=== PATIENT | female | born 1955 | race Caucasian/White ===

== ENCOUNTER 2023-04-29 01:07 | Outpatient (CLI) | payer MEDICARE, SELFPAY ==
--- NOTE | 2023-04-29 13:56 | DI.DEXA_ITS ---
Exam(s) XR DEXA BONE DENSITY W/WO NAYA EXAM: XR DEXA BONE DENSITY W/WO NAYA CLINICAL HISTORY: osteoporosis, POSTMENOPAUSAL STATUS, Z78.0 TECHNIQUE: COMPARISON: No exams were available for comparison FINDINGS: Lateral Spine Image: Unremarkable. No compression deformities identified. There are postsurgical andie nges seen in the lower lumbar spine with posterior spinal rods and pedicle screws. Left hip: Total T-Score: -2.5. This compares to -2.6 on the prior examination. Total Z-Score: -1.2 T- and Z-scores: Findings are consistent with osteoporosis. Left forearm: Total T-Score: -1.7 Total Z-Score: -0.1 T- and Z-scores: Findings are consistent with osteopenia. IMPRESSION: Osteoporosis in the left hip.
== END 2023-04-29 01:27 ==
LOC: DI 01:07
PROVIDERS: PCP Nurse Practitioner Family; Visit Provider Nurse Practitioner Family
DX: Z78.0 Asymptomatic menopausal state (principal); Z13.820 Encounter for screening for osteoporosis; M81.8 Other osteoporosis without current pathological fracture
CPT/HCPCS: 77080

== ENCOUNTER 2023-05-27 01:20 | Outpatient (CLI) | payer MEDICARE, SELFPAY ==
[2023-05-27 12:43] LABS: ALT 27 U/L (14-59); AST 21 U/L (15-37); Alkaline Phosphatase 61 U/L (46-116); Anion Gap 7.4 mmol/L (3-11); BUN 9 mg/dL (7-18); Bilirubin, Total 0.3 mg/dL (0.2-1.0); CO2 30.6 mmol/L (21.0-32.0); CREATININE 0.9 mg/dL (0.55-1.02); Calcium 9.4 mg/dL (8.5-10.1); Calculated LDL 48 mg/dL (<100); Chloride 104 mmol/L (98-107); Cholesterol 131 mg/dL (<200); Estimated GFR 70.51 (mL/min/1.73m2); Glucose 97 mg/dL (74-106); HDL Cholesterol 75 mg/dL (40-60); Potassium 4.2 mmol/L (3.5-5.1); Sodium 142 mmol/L (136-145); Total Protein 7.2 g/dL (6.4-8.2); Triglyceride 41 mg/dL (<150)
== END 2023-05-27 01:21 | disposition home or self-care (01) ==
LOC: LOS 01:20
PROVIDERS: PCP Nurse Practitioner Family; Visit Provider Nurse Practitioner Family
DX: E78.2 Mixed hyperlipidemia (principal); I10 Essential (primary) hypertension; F43.10 Post-traumatic stress disorder, unspecified
CPT/HCPCS: 36415; 80053; 80061

== ENCOUNTER → 2023-06-13 13:34 | Outpatient (BNVA) | payer MEDICARE, SELFPAY | PROVIDERS: PCP Nurse Practitioner Family; Referring Provider Nurse Practitioner Family; Visit Provider Surgery | DX: Z12.11 Encounter for screening for malignant neoplasm of colon (principal) | CPT/HCPCS: 36415; 99243 ==

== ENCOUNTER 2023-06-13 14:23 | Outpatient (REF) | payer MEDICARE, SELFPAY ==
[2023-06-13 14:50] LABS: Abs Immature Grans 0.01 10^3/uL (0.0-0.06); Absolute Basophil Count 0.04 10^3/uL (0.0-0.2); Absolute Eosinophil Count 0.04 10^3/uL (0.0-0.7); Absolute Lymphocyte Count 2.25 10^3/uL (1.2-3.4); Absolute Monocyte Count 0.71 10^3/uL (0.1-0.8); Absolute Neutrophil Count 3.47 10^3/uL (1.2-6.7); Basophils % 0.6; Eosinophils % 0.6; HCT 39.6 % (36.0-46.0); HGB 13.7 g/dL (11.2-15.7); Immature Grans % 0.2; Lymphocytes % 34.5; MCH 30.6 pg (27.0-33.0); MCHC 34.6 % (32.0-36.0); MCV 88 fL (80-95); MPV 9.3 fL (8.0-11.0); Monocytes % 10.9; Neutrophils % 53.2; Platelet Count 277 10^3/uL (130-400); RBC 4.48 10^6/uL (3.93-5.22); RDW 12.6 % (11.7-14.6); RDW-SD 41.1 fL; WBC 6.52 10^3/uL (4.4-10.8)
[2023-06-13 15:12] LABS: Ferritin 68 ng/mL (8-252)
== END 2023-06-13 14:24 | disposition home or self-care (01) ==
LOC: LBN 14:23
PROVIDERS: PCP Nurse Practitioner Family; Visit Provider Surgery
DX: I10 Essential (primary) hypertension; K58.9 Irritable bowel syndrome, unspecified; K92.2 Gastrointestinal hemorrhage, unspecified; R19.5 Other fecal abnormalities
CPT/HCPCS: 82728; 85025

== ENCOUNTER 2023-07-05 08:59 | Day surgery (SDC) | payer MEDICARE, SELFPAY ==
--- NOTE | 2023-07-04 14:42 | W.PM.DSUDISC ---
Date of service: 07/05/23 Time of Service: 10:43 Discharge Plan Disposition Patient Disposition: Home Condition: Good Discharge Details Reason For Visit: colon scope Attending Provider: Lottie Cortez Primary Care Provider: Ac Jeffery Home Meds and New Rx's Prescriptions: Continued naloxone [Narcan] 4 mg/actuation spray,non-aerosol 4 mg intranasal Q3M PRN (Reason: opioid overdose) Qty: 2 0RF Patient Comments: 07/05/23 pt denies having this medication Rx Instructions: spray 1 dose into ONE nostril; alternate nostrils w each dose until help arrives multivitamin [Once Daily] 1 EACH tablet 1 tab PO DAILY acetaminophen [Tylenol Extra Strength] 500 MG tablet 2 tab PO PRN polyethylene glycol 3350 510 GM powder 1 dose PO DAILY Qty: 9 Rx Instructions: MIRALAX;DISPENSE 3 MO. SUPPLY cholecalciferol (vitamin D3) 1,000 UNIT capsule 1 cap PO DAILY calcium carbonate-vitamin D3 1 EACH tablet,chewable 2 - 3 tab PO DAILY Rx Instructions: TUMS B Complex Plus Vitamin C 1 EACH capsule 1 cap PO DAILY omega-3 fatty acids-fish oil 1 EACH capsule 1 cap PO DAILY ketorolac 15 MG/1 ML solution 15 mg IM BID PRNQty: 1 estradiol [Estrace] 42.5 GM cream 2 g VG Q 48 Hours Qty: 42.5 clonazepam [Klonopin] 0.5 MG tablet 0.5 mg PO DAILY PRNQty: 90 hydrochlorothiazide 25 mg tablet 12.5 mg PO Q OTHER DAY glycerin (adult) Suppository 1 supp CO DAILY PRN amlodipine [Norvasc] 10 mg tablet 5 mg PO DAILY duloxetine [Cymbalta] 60 mg capsule,delayed release(DR/EC) 60 mg PO DAILY cyclobenzaprine 10 mg tablet 10 mg PO TID PRN (Reason: muscle spasm) Patient Comments: 07/05/23 Pt states I don't use/have this medication methocarbamol 500 mg tablet 500 mg PO QID PRN (Reason: muscle spasm) Qty: 30 0RF hydrocodone-acetaminophen 7.5-325 mg tablet 1 tab PO TID MDD 3 tab PRN (Reason: pain) Qty: 90 0RF montelukast 10 mg tablet 10 mg PO QHS Qty: 90 4RF metoprolol succinate 25 mg tablet extended release 24 hr 12.5 mg PO BID rosuvastatin 20 mg tablet 20 mg PO DAILY Discontinued polyethylene glycol 3350 17 gram/dose powder 238 g PO ONCE Qty: 238 0RF Rx Instructions: take per colonoscopy instructions bisacodyl [Dulcolax (bisacodyl)] 5 mg tablet,delayed release (DR/EC) 5 mg PO ONCE Qty: 4 0RF Rx Instructions: take per colonoscopy instructions bisacodyl [Dulcolax (bisacodyl)] 5 mg tablet,delayed release (DR/EC) 5 mg PO .Take as directed Qty: 4 0RF Discharge Instructions Additional Instructions: [facility] Colonoscopy Post-Op Instructions Instructions for Everyone who is given Anesthesia: For your safety, please do the following for the next twenty-four (24) hours: *Do Not operate a motor vehicle (car, truck, motorcycle, etc.) *Do Not drink alcoholic beverages or use any recreational drugs for the first 24 hours or while taking pain medications. The medications in your body may have a reaction that can be dangerous. *Do Not make any important decisions or sign any important papers. Findings: x4 small polyps -mild diverticula anal skin tag removal Follow up: -My office will send a letter in 2 to 3 weeks time with the results of pathology on the polyps and when we want you to repeat the colonoscopy. 1. No lifting over 20 pounds or strenuous activity for the first 24 hours after your procedure. After 24 hours there are no restrictions on your activity but you may feel fatigued for a few days. 2. After you arrive home you may have a light meal and return to your normal diet as you can tolerate it without feeling sick to your stomach. 3. You may have a bloated, gaseous feeling in your belly (abdomen) after a colonoscopy. Passing gas and belching will help. Walking or lying down on your left side with your knees flexed may relieve the discomfort. Call the office at [phone] (Office) or [phone] (Hospital) right away if you notice any of the following: a.Vomiting of blood or ?coffee ground stools?. b.Rectal bleeding 1Tbsp, blood clots or continuous bleeding. c.Severe belly (abdominal) pain. d.A hard distended belly (abdomen) and an inability to pass gas. 4. Please don?t expect to have a normal BM (bowel movement) for 2-3 days after your procedure. 5. If there are questions regarding the findings of your procedure, please contact your doctor 6. If you are unable to contact your doctor with a problem, contact the hospital at [phone]. 7. Continue all your regular medications unless directed otherwise. I understand the above instructions and have no questions. Signature of Patient or Adult Escort Name of Responsible Adult Escort Signature of Nurse Date/Time Wound Care Instruction Pain Control Use ice!? Ice keeps the swelling down and swelling is what causes pain.? Never apply ice directly to the skin.? Wrap it in a towel or cloth.? Apply ice 20 minutes on and 20 minutes off for pain control.? Use as needed. Take Tylenol 500 mg by mouth with food every 4 hours as needed for pain. Or ibuprofen 600 mg by mouth with food every 6 hours as needed for pain.? Do not take Tylenol if you have a history of heavy drinking, hepatitis C or liver problems.? Do not take ibuprofen if you have a history of stomach ulcers/problems, bleeding problem or kidney issues. ? Always wash your hands before touching your incision. ? Keep the incision clean, dry, and out of water, keep the incision out of water. ? Do not to pick at the scabs. Scabs help protect the wound. ? You can take a shower in 24 hours and wash the incision with soap and water. Pat dry/don?t scrub. It?s OK to wash around the incision. But don?t spray water directly on it. ? Pat stitches dry if they get wet. Don't rub. ? Check the incision site daily for pain, redness, drainage, swelling, or separation of the incision edges. ? Make sure any clothing that touches the incision is loose-fitting. This will prevent rubbing. If the incision is on the head, keep your child from wearing caps or other head coverings. These may rub against the incision. As your incision heals, the skin may appear pink or red. It may also feel slightly bumpy or raised. This is called a healing ridge. Over time, the color should fade and the raised skin will become less noticeable. When to seek medical care Call your healthcare provider right away if you have any of these: ? More pain, redness, swelling, bleeding, or foul-smelling discharge around the incision area ? Fever of 101?F (38.3?C) or higher, or as directed by your child's healthcare provider ? Shaking chills ? Vomiting or nausea that doesn?t go away ? Numbness, coldness, or tingling around the incision area, or changes in skin color ? Opening of the sutures or wound -Stitches or aries that come apart or fall out or surgical tape falls off before 7 days, or as directed by your healthcare provider ?[facility]: [phone] DIVERTICULAR DISEASE OVERVIEW???A diverticulum is a pouch-like structure that can form through points of weakness in the muscular wall of the colon (ie, at points where blood vessels pass through the wall). Diverticulosis affects men and women equally. The risk of diverticular disease increases with age. It occurs throughout the world but is seen more commonly in developed countries. WHAT IS DIVERTICULAR DISEASE? Diverticulosis???Diverticulosis merely describes the presence of diverticula. Diverticulosis is often found during a test done for other reasons, such as flexible sigmoidoscopy, colonoscopy, or barium enema. Most people with diverticulosis have no symptoms and will remain symptom free for the rest of their lives. A person with diverticulosis may have diverticulitis, or diverticular bleeding. Diverticulitis???Inflammation of a diverticulum (diverticulitis) occurs when there is thinning and breakdown of the diverticular wall. This may be caused by increased pressure within the colon or by hardened particles of stool, which can become lodged within the diverticulum. The symptoms of diverticulitis depend upon the degree of inflammation present. The most common symptom is pain in the left lower abdomen. Other symptoms can include nausea and vomiting, constipation, diarrhea, and urinary symptoms such as pain or burning when urinating or the frequent need to urinate. Diverticulitis is divided into simple and complicated forms. ?Simple diverticulitis, which accounts for 75 percent of cases, is not associated with complications and typically responds to medical treatment without surgery. ?Complicated diverticulitis occurs in 25 percent of cases and usually requires surgery. Complications associated with diverticulitis can include the following: ?Abscess ? a localized collection of pus ?Fistula ? an abnormal tract between two areas that are not normally connected (eg, bowel and bladder) ?Obstruction ? a blockage of the colon ?Peritonitis ? infection involving the space around the abdominal organ ?Sepsis ? overwhelming body-wide infection that can lead to failure of multiple organs Diverticular bleeding???Diverticular bleeding occurs when a small artery located within a diverticulum is eroded and bleeds into the colon. Diverticular bleeding usually causes painless bleeding from the rectum. In approximately 50 percent of cases, the person will see maroon or bright red blood with bowel movements. Is bleeding with a bowel movement normal?It is not normal to see blood in a bowel movement; this can be a sign of several conditions, most of which are not serious (eg, hemorrhoids) but some of which are serious and require immediate treatment. Anyone who sees blood after a bowel movement should consult with their healthcare provider to determine if further testing or evaluation is needed. DIVERTICULOSIS AND DIVERTICULITIS DIAGNOSIS???Diverticulosis is often found during tests performed for other reasons. ?Barium?enema ? This is an x-ray study that uses barium in an enema to view the outline of the lower intestinal tract. This is an older test and has been largely replaced by computed tomography (CT) scan. ?Flexible sigmoidoscopy ? This is an examination of the inside of the sigmoid colon with a thin, flexible tube that contains a camera. ?Colonoscopy ? This is an examination of the inside of the entire colon. ?CT scan ? A CT scan is often used to diagnose diverticulitis and its complications. If diverticulitis (not just diverticulosis) is suspected, the above three tests should not be used because of the risk of perforation. TREATMENT Diverticulosis???People with diverticulosis who do not have symptoms do not require treatment. However, most clinicians recommend increasing fiber in the diet, which can help to bulk the stools and possibly prevent the development of new diverticula, diverticulitis, or diverticular bleeding. Fiber is not proven to prevent these conditions in all patients but may help to control recurrent episodes in some. Increase fiber???Fruits and vegetables are a good source of fiber.? Fiber content of packaged foods can be calculated by reading the nutrition label. Seeds and nuts???Patients with diverticular disease have historically been advised to avoid whole pieces of fiber (such as seeds, corn, and nuts) because of concern that these foods could cause an episode of diverticulitis. However, this belief is completely unproven. We do not suggest that patients with diverticulosis avoid seeds, corn, or nuts. Diverticulitis???Treatment of diverticulitis depends upon how severe your symptoms are. Home treatment???If you have mild symptoms of diverticulitis (mild abdominal pain, usually left lower abdomen), you can be treated at home with a clear liquid diet and oral antibiotics. However, if you develop one or more of the following signs or symptoms, you should seek immediate medical attention: ?Temperature >100.1?F (38?C) ?Worsening or severe abdominal pain ?An inability to tolerate fluids Hospital treatment???If you have moderate to severe symptoms, you may be hospitalized for treatment. During this time, you are not allowed to eat or drink; antibiotics and fluids are given into a vein. If you develop an abscess of the colon, you may require drainage of the abscess (usually performed by placing a drainage tube across the abdominal wall) or by surgically opening the affected area. Surgery???If you develop a generalized infection in the abdomen (peritonitis), you will usually require an emergency operation. A two-part operation may be necessary in some cases. ?The first operation involves removal of the diseased colon and creation of a colostomy. A colostomy is an opening between the colon and the skin, where a bag is attached to collect waste from the intestine. The lower end of the colon is temporarily sewed closed to allow it to heal. ?Approximately three to six months later, a second operation is performed to reconnect the two parts of the colon and close the opening in the skin. You are then able to empty your bowels through the rectum. Sometimes patients require up to a year to recover from the first operation, depending on how sick they were. In non-emergency situations, the diseased area of the colon can be removed and the two ends of the colon can be reconnected in one operation, without the need for a colostomy. Surgery versus medical therapy???An operation to remove the diseased area of the colon may be necessary if you do not improve with medical therapy. After an episode of uncomplicated diverticulitis, elective surgery is generally not required as the risk of another attack or requiring emergency surgery is low. However, patients with persistent symptoms attributable to diverticulitis, a history of complicated diverticulitis, or a compromised immune system should be evaluated for possible surgery to prevent another attack. In such patients, another attack has been associated with a higher risk of complications or . Of course, the decision will also depend in part upon your other medical conditions and ability to undergo surgery. In many cases, an elective operation can be performed laparoscopically, using small incisions, rather than the typical vertical (up and down) abdominal incision. Laparoscopic surgery usually allows you to recover more quickly and shortens the hospital stay. After diverticulitis resolves???After an episode of diverticulitis resolves, if you have not had a recent colonoscopy, the entire length of the colon should be evaluated to determine the extent of disease and to rule out the presence of abnormal lesions such as polyps or cancer. Recommended tests include colonoscopy, barium enema and sigmoidoscopy, or CT colonography. Diverticular bleeding???Most cases of diverticular bleeding resolve on their own. However, some people will need further testing or treatment to stop bleeding, which may include a colonoscopy, angiography (a treatment that blocks off the bleeding artery), bleeding scan, or surgery. DIVERTICULAR DISEASE PROGNOSIS Diverticulosis???Over time, diverticulosis may cause no problems or it may cause episodes of bleeding and/or diverticulitis. Approximately 15 to 25 percent of people with diverticulosis will develop diverticulitis, while 5 to 15 percent will develop diverticular bleeding. Diverticulitis???Approximately 85 percent of people with uncomplicated diverticulitis will respond to medical treatment, while approximately 15 percent of patients will need an operation. After successful treatment for a first attack of diverticulitis, one-third of patients will remain asymptomatic, one-third will have episodic cramps without diverticulitis, and one-third will go on to have a second attack of diverticulitis. The prognosis tends to remain similar following a second attack of diverticulitis. Only 10 percent of people remain symptom-free after a second attack. Subsequent attacks tend to be of similar severity, not increasing in severity as previously believed. High Fiber Diet What is Dietary Fiber? All fiber comes from plants, bushes, sal or trees.? Of course, the ones that we eat provide us with fruits, vegetables and grains.? There are many different types of fiber but the three that are most important to the health of the body are: Insoluble Fiber This fiber does not dissolve in water, nor is it fermented by the bacteria residing in the colon.? Rather, it retains water and in so doing, helps to promote a larger, bulkier and more regular bowel activity.? This, in turn, may be important in preventing disorder such as diverticulosis and hemorrhoids, and in sweeping out certain toxins and cancer causing carcinogens.? Sources of insoluble fiber are: ? whole grain wheat and other whole grains ? corn bran, including popcorn, unflavored and unsweetened ? nuts and seeds ? potatoes and the skins from most fruits from trees such as apples, bananas and avocados ? many green vegetables such as green beans, zucchini, celery and cauliflower ? some fruit plants such as tomatoes and kiwi Soluble Fiber These fibers are fermented or used by the colon bacteria as a food source or nourishment.? When these good bacteria grow and thrive, many health benefits occur in both the colon and the body.? Soluble fiber is present in some degree in most edible plant foods, but the ones with the most soluble fiber include: ? legumes such as peas and most beans, including soybeans ? oats, rye and barley ? many fruits such as berries, plums, apples bananas and pears ? certain vegetables such as broccoli and carrots ? most root vegetables ? psyllium husk supplement products Benefits of a High Fiber Diet The health benefits of a high fiber diet, consumed on a regular basis and reaching recommended amounts (below), are now fairly well-defined. There are some additional benefits in the early research stage with the prebiotic soluble fibers. What is now known regarding a high fiber diet include: Bowel Regularity A high fiber diet promotes regularity with a softer, bulkier and regular stool pattern. This decreases the chance of hemorrhoids, diverticulosis and perhaps colon cancer. Cholesterol and Reduced Triglycerides The soluble fibers are the ones that will reduce cholesterol levels when used on a regular basis. Psyllium husk and prebiotic soluble fiber will also reduce cholesterol. They may also reduce the incidence of coronary heart disease. Oats, flax seeds and legumes or beans are the recommended fibers. Colon Polyps and Cancer It is still not certain if a high fiber diet helps prevent colon cancer. Considerable research suggests that this may occur. Certainly it makes sense to increase regularity and so speed the movement of cancer causing carcinogens through the bowel. In addition, reducing a heavy meat diet reduces the bile flow from the liver in a favorable way. This, too, reduces the amount of carcinogens that reach and are manufactured in the colon. Finally, a high fiber diet, including prebiotic soluble fiber, increases the integrity and health of the wall of the colon. The risk of cancer may be reduced. Colon Wall Integrity A high fiber diet changes the bacterial makeup of the colon toward a more favorable balance. For instance, it is known that those people with obesity, diabetes type 2 and inflammatory bowel disease have a predominance of bad bacteria in the colon. This, in turn, may render the bowel wall weak and allow bacteria and, indeed, even toxins to seep through. A high fiber diet with a modest reduction in animal and meat products may return the bacterial makeup to a more positive balance. This, in particular, has been seen when the soluble fiber prebiotics are added to the diet. Blood Sugar Soluble fiber such as in legumes (beans), oats and in prebiotic fibers slows the absorption of blood sugar and so helps regulate the sugar in the blood. Insoluble fiber on a regular basis is associated with reduced risk of type 2 diabetes. Weight Loss High fiber diets are more filling and give a sense of fullness sooner than an animal and meat based diet does. In addition, the soluble prebiotic fibers have been shown to turn off the hunger hormones produced in the wall of the gut and to increase the hormones that give a sense of fullness. Those hormones are made in the wall of the gut. New medical research has shown that the bacterial makeup in the colon in overweight people is abnormal to the extent that they manufacture and absorb almost twice the number of calories through the colon wall as do normals. Prebiotic fibers (below) will help change this hormonal balancein a favorable way. Bacteria and the Function of the Colon The colon finishes the digestive process. Hopefully, the waste products move through in a nice regular manner. Insoluble fibers help this process by retaining water and so producing a bulkier, softer stool, which is easy to pass. The additional role of the colon is to provide a home for an enormous number of micro-organisms, mostly bacteria. Recent research has shown that there are over 1,000 species of bacteria with a total bacterial count ten times the number of cells in the body. These bacteria play a major role in keeping the colon wall itself healthy. In addition, these good bacteria produce a very strong immune system for the body. They significantly increase calcium absorption and bone density. They provide other documented benefits. It is the soluble fibers in the diet that are so effective in stimulating the growth of good colon bacteria. How Much is Enough? The amount of fiber in food is measured in grams.? National nutritional authorities recommend the following amounts of dietary fiber daily. Under Age 50? Over Age 50 Men? 38 grams? 30 grams Women??? 25 grams? 21 grams For a week or so, it is best to tally the amount of fiber you are consuming.? Boxed and packaged foods will have the amount of fiber per serving on the nutrition label. Which Fibers and Which Foods are Best? As noted, healthy fiber is only found in plants. The three major categories are whole grains, fruits and vegetables. Whole Grains Wheat, oats, barley, wild or brown rice, amaranth, buckwheat, bulgur, corn, millet, quinoa, rye, sorghum, teff and triticals. By far, wheat, oats and wild or brown rice are most common. Always buy whole grain products. White bread, baked goods and rolls almost always are made from wheat flour. Wheat flour is white because most of the fiber, vitamins and other nutrients have been removed. Try not buy enriched grains. What this means is that simple white flour has had vitamins added to it by the currency counter. The word, enriched, implies a good and healthy product. On the contrary, enriched means that most of the fiber has been removed and a few vitamins added. Fruits Fruits come from trees such as apple and pear or from bushes or sal. You should eat a wide variety of fruits, preferably with every meal. In many cases, the skin of a fruit such as apple will contain much of the insoluble fiber while the pulp contains most of the soluble fiber. To the extent possible, buy organic fruits as these will have little or no pesticides. Always wash fruit. Vegetables Eat a wide variety of vegetables. They should be a mainstay of lunch and dinners. Frozen vegetables retain as much nutrition and fiber as fresh vegetables. As with fruit, try to buy organic to reduce any residual pesticide ingestion. Wash fresh vegetables thoroughly. Cruciferous vegetables such as broccoli, [place] sprouts and cauliflower contain certain chemicals such as sulforaphane. This substance has very strong anti-cancer properties and should be eaten frequently. Legumes, Beans, Peas and Soybeans These vegetables have plenty of soluble fiber and should be part of a varied vegetable intake. Beans, in particular, contain a certain type of fiber that may lead to harmless gas or bloating. Nuts and Seeds These are rich sources of fiber and are a good substitute for sweets such as candies and baked sweet goods. While nuts and seeds are rich in fiber, they also contain vegetable fat and so can and do add calories. Read the Labels As noted, fresh and frozen foods are usually better.? They have good nutrition and few, if any, chemicals added to them.? When buying packaged foods and, in particular grains, look for three things: ? The first word on the label should be whole, such as whole wheat or whole grain. ? Check out the calories and the amount of fiber in a serving. ? How many and what other additives or chemicals are added.? Fewer is always better.? Do you know what each additive does?? Some are added not for the benefit of the mainframe applications developer but rather for manufacturers.? These could and do include sugar, artificial flavor, chemicals to prevent oxidation and spoilage, emulsifiers to blend the product.? You have to be a principal java software engineer. Fiber Facts, Nuggets and Pearls ? For breakfast you can easily get the day started well by using a high fiber, whole grain cereal.? Check the labels.? Add fruit such as blueberries and bananas.? If you are an egg eater, use whole wheat or grain toast.? Adding wheat germ gives you a good fiber kick. ? Always use whole grain or wheat with rolls and sandwiches.? Does your fast food store not have them?? Perhaps you look elsewhere.? Eating an occasional black ndiaye or veggie burger provides variety. ? Snacks should consist of fruit and/or nuts.? While nuts are loaded with fiber, they are an energy rich food, meaning they have a lot of calories in a small packet. ? Fruit juices should contain pulp.? Clear juices such as clear orange, pear or apple juice contain little fiber and have a lot of fructose.? Prune juice is usually high in fiber. ? Homemade soups ? adding fresh or frozen vegetables to a chicken or vegetable stock is a good way to start homemade soup. ? Salads ? adding cooked and then chilled vegetables provide great flavoring to almost any salad.? Remember, a zuniga salad has lots of cooked corn in it.? Small slices of apples or oranges and nuts such as chopped walnuts or sliced almonds always adds taste, variety and fiber to almost any salad. ? Fruit ? Try to eat fruit of some type with almost every meal. ? Rethink how you place the various foods on your dinner plate.? Reducing the portions of the meat or animal food portion to the side with equal or more portions of vegetables, legumes and fruits portion always allows for more fiber.? There was never anything magic about making the meat or animal food portion the main part of the dinner plate.? Eating from smaller plates can, over time, trick your mind and joint terminal attack controller habit of using a dinner plate.? Again, there is nothing magic in an 11, 12, or 13 inch dinner plate. Fiber Supplements There are a variety of fiber supplements available on the food or pharmacy shelves. Psyllium This soluble plant fiber has been used in [place] for over 2,000 years. It is a soluble fiber with mucilage in it. This acts to retain a lot of water and also is fermented by colon bacteria. When 7 grams a day are used, it does lower cholesterol. Metamucil in various forms is psyllium. Methyl Cellulose All the cellulose products come from finely ground wood chips which are then treated in a variety of ways such as boiling in acids. Methyl cellulose is an insoluble fiber which does dissolve in water. It is also an emulsifier, meaning it blends oils and water. Citrucel is methyl cellulose (MC). MC may not be appropriate for Crohn?s disease or ulcerative colitis as several medical studies have shown that certain emulsifiers dissolve the mucous lining of the colon in animals prone to Crohn?s disease. This then allows bacteria to invade the underlying tissue. Fiber and Gas Everyone has intestinal gas and that is a good thing.? It means that bacteria, hopefully the good ones, are thriving.? The normal amount of flatus passed each day depends on sex and what is eaten.? The normal number of flatus is 10-20 times a day.? When the bacteria that make intestinal gases are growing, it also means that other good bacteria are using the same fibers to grow and produce multiple health benefits, including the production of healthy short-chain fatty acids.? These substances are produced quietly in the colon and produce many health-related outcomes. Soluble fiber should always be used in a gradual manner.? If too much is consumed at any one time, then excess, but harmless, intestinal gas can occur.? People with irritable bowel syndrome are particularly prone to bloating and mild cramping.? In this instance, soluble fiber in the diet or supplement should be used in small doses and increased gradually. Finally, prebiotic fibers tend to cause the production of short-chain fatty acids which acidify the colon.? This, in turn, reduces or stops the growth of bacteria that make the smelly hydrogen sulfide gases that produce noxious flatus.? People who consume many vegetables with prebiotics or take a prebiotic fiber supplement often have non-odoriferous flatus. Fiber and Irritable Bowel Syndrome Irritable bowel syndrome (IBS) is one of the most common disorders of the lower digestive tract.? The symptoms of IBS can be quite varied.? They can be a mix of several symptoms such as constipation, diarrhea, crampy abdominal discomfort, bloating and gas.? An attack of IBS can be triggered by emotional tension and anxiety, poor dietary habits and certain medications.? It is now known that infections in the intestine can lead to long-term IBS symptoms.? Increased amounts of fiber in the diet can help relieve the symptoms of irritable bowel syndrome by producing soft, bulky stools.? This helps to normalize the time it takes for the stool to pass through the colon.? Recent medical research with newer techniques has shown some surprising and dramatic findings for IBS patients.? Specifically, there is a very significant and abnormal shift of bacteria from those that provide health benefits to those bad bacteria that we really do not want in the gut.? The technical name for this bad group of bacteria is called Firmicutes.? Along with this abnormal bacterial collection, there is a smoldering low-grade inflammation in the gut wall that may contribute to symptoms.? The goal for IBS patients should be to gradually increase the soluble dietary fibers in the diet so as to promote the growth of good bacteria and so suppress the bad ones along with the associated inflammation. IBS patients need to be careful of the amount of soluble fiber they consume.? The reason for this is that, while the good colon bacteria thrive on these fibers and produce health benefits, other gas-forming bacteria may generate excessive but harmless gas and subsequent bloating.? Thus, soluble plant fibers or a dietary prebiotic supplement should be taken in small initial doses and then gradually increased to tolerance. Fiber and Colon Polyps/Cancer Colon cancer is a major health problem. This disease is most common in Western cultures. It is not seen very often in rural cultures where the diet is mostly plant based. Usually, colon cancer starts out as a colon polyp, a benign mushroom-shaped growth. In time it grows, and in some people it becomes cancerous. Colon cancer is usually always curable if polyps are removed when found or if surgery is performed at an early stage. It is now known that people can inherit the risk of developing colon cancer, but diet is important, too. As noted, there is a very low rate of colon cancer in residents of countries where grains are unprocessed and retain their fiber. It seems that in the Western world, cancer-containing agents (carcinogens) remain in contact with the colon wall for a longer time and in higher concentrations. So, a large bulky stool may act to dilute these carcinogens by moving them through the bowel more quickly. Less carcinogenic exposure to the colon may mean fewer colon polyps and less cancer. A very current review of the entire world?s literature on the effect of fiber on colon polyps and cancer prevention has shown rather clearly that for every 10 grams of fiber added to the diet, there is a 10% reduction in incidence of colon cancer. So the recommended 30 gram fiber diet would result in a 30% less chance of getting these tumors. There are also substances produced in the colon by the good bacteria that seem to retard certain pre-cancer factors from developing. They are called short-chain fatty acids (SCFA). See above for description of SCFAs. A high fiber diet increases these substances. So, the combination of dietary fiber and the production of short-chain fatty acids have a clear health benefit. Fiber and Diverticulosis Prolonged, vigorous contraction of the colon over a long period of time may result in diverticulosis.? This increased pressure causes small and, eventually, larger ballooning pockets to form.? These pockets by themselves cause no problem.? However, sometimes they become infected (diverticulitis) or even break open (perforate) causing infection or inflammation within the abdomen (peritonitis).? A high fiber diet increases the bulk in the stool and thereby reduces the pressure within the colon.? By so doing, the formation of pockets may be reduced or possibly even stopped. In the past, many physicians were fearful that seeds as in tomatoes, nuts or berries were harmful and could get inside these pockets and rattle around, causing damage. We now know that this has never been the case and that these foods contain lots of fiber and are actually beneficial for diverticulosis patients. Certain bulking agents such as psyllium are traditional types of bulk producing supplements.? Psyllium is a soluble fiber.? Combining it with insoluble fiber as in wheat bran or corn bran (no gluten) can enhance this bulking effect even more.? A product containing a prebiotic, psyllium and wheat bran is probably a very good combination for bowel regularity. [email or web address] Regularity/Diverticulosis is one such product. Activity:: see above Diet:: see above Discharge Orders Discharge Orders: Discharge Order (Routine); Ordered 07/05/23 Ordered By: Lottie Cortez DS: Diagnosis Discharge Diagnosis (1) Hemorrhoidal skin tag: Status: Acute (2) Hemorrhoids: Status: Acute (3) Diverticulosis: Status: Acute (4) Positive colorectal cancer screening using Cologuard test: Status: Acute (5) Adenomatous polyps: Status: Acute Asessment and Plan: The patient is seen and examined after their colonoscopy.? The patient has been able to pass gas.? They are not having abdominal pain.? They have been able to tolerate liquids and a snack.? They do not have any nausea or vomiting.? They are not having any chest pain or shortness of breath.??? They are not having any rectal bleeding. Their vital signs have been stable-see nursing notes. We discussed findings during their colonoscopy, and any biopsies that were done/polyps that were removed. The patient will be sent a letter with any biopsy results, and when to repeat the colonoscopy.-see discharge instructions. Patient was given explicit instructions to follow-up regarding colonoscopy-refer to discharge instructions.? We reviewed resumption of medications. Patient verbalized understanding and discharged in stable and satisfactory condition- See nursing notes.
--- NOTE | 2023-07-04 14:43 | W.COLOREPORT ---
Date of service: 07/05/23 Time of Service: 10:40 Colonoscopy Report Date of procedure: 07/05/23 Pre-op diagnosis general: History of adenomatous polyps and diverticula. Positive Cologuard and joan Post-op diagnosis procedure note: same (and perirectal skin tag) Procedure: Colonoscopy and excision of perirectal skin tag Surgeon: Lottie Cortez Anesthesia Type: General:No Airway Estimated blood loss (mL): 1 Pathology: other Complications: None Disposition: same day Prep: Miralax/Dulcolax Retraction Time: 15 Procedure Description: After informed consent was obtained the patient was taken to the procedure room and placed in a left decubitous position. Monitors were applied and a time out was done. The patients name, date of , procedure, allergies to medications and metal in their body was reviewed. The patient was then sedated. Once sedated and comfortable a rectal exam was done. External exam was normal. Internal exam revealed a normal sphincter tone and no palpable masses. The scope was then introduced and retrofelexed. No internal hemorrhoids were identified. The scope was then advanced to the cecum w/out difficulty. The TI and appendiceal orifice were identified. The prep was BBPS 3 in all segments for a total of 9.. The scope was then slowly retracted over 15 minutes back into the rectum. She has minor diverticular disease that extends all the way over to the splenic flexure. There is no signs of active bleeding or infection. She has 4 small polyps that we removed today with a cold biting forcep. There are three 5 mm flat polyps at 20 cm, and x1 flat 5 mm polyp at 10 cm. All specimens are retrieved and no bleeding is noted. She has a 0.5 cm anal skin tag at the 6 o'clock position. This is excised using electrocautery. The scope was removed and the patient was woken up and taken back to Same day surgery in stable condition. The patient tolerated the procedure well and there were no immediate complications. Follow up: The patient should follow up in ~7 years unless they develop changes in bowel habits or other new gastrointestinal complaints.
[2023-07-05 09:37] VITALS: BP 126/68; PULSE 73; RESP 16; TEMP 35.8; O2SAT 99
--- NOTE | 2023-07-05 09:50 | ANES.PREOP_ITS ---
General Info Date of Service Date Performed: 07/05/23 Height: 5 ft 0.5 in Weight: 55.8 kg Body Mass Index (BMI): 23.6 Surgical Procedure: Operation Date: 07/05/23 10:25 Proposed Procedure Side Surgeon p Colonoscopy Lottie Cortez, DO s Excision Anal Skin Tag Lottie Cortez, Actual Procedure Side Surgeon p Colonoscopy Lottie Cortez, DO s Excision Anal Skin Tag Lottie Cortez, DO Meds Allergies and Home Medications Allergies Allergy/AdvReac Type Severity Reaction Status Date / Time silicone [Silicone] Allergy Mild LOCAL Unverified 07/05/23 09:21 REACTION amoxicillin Allergy Unknown Hives Unverified 07/05/23 09:21 cefaclor [Cefaclor] Allergy Unknown RASH Unverified 07/05/23 09:21 NSAIDS (Non-Steroidal AdvReac Unknown GI Unverified 07/05/23 09:21 Anti-Inflamma DISTRESS oxycodone [Oxycodone] AdvReac Unknown HALLUCINATI Unverified 07/05/23 09:21 ONS Home Medication Medication Instructions Recorded acetaminophen 500 mg tablet 2 tab PO PRN 01/29/13 (Tylenol Extra Strength) calcium carbonate 500 mg-vitamin 2 - 3 tab PO DAILY 01/29/13 D3 2.5 mcg (100 unit) chewable tablet cholecalciferol (vitamin D3) 25 1 cap PO DAILY 01/29/13 mcg (1,000 unit) capsule multivitamin (Once Daily tablet) 1 tab PO DAILY 01/29/13 omega-3 fatty acids-fish oil 300 1 cap PO DAILY 01/29/13 mg-1,000 mg capsule polyethylene glycol 3350 17 1 dose PO DAILY ##9 01/29/13 gram/dose oral powder vitamin B comp and C no.3 15 mg-10 1 cap PO DAILY 01/29/13 mg-50 mg-5 mg-300 mg capsule (B Complex Plus Vitamin C) ketorolac 15 mg/mL injection 15 mg IM BID PRN #1 vial 04/02/14 solution clonazepam 0.5 mg tablet (Klonopin) 0.5 mg PO DAILY PRN #90 tabs 07/30/14 estradiol 0.01% (0.1 mg/gram) 2 g vaginal Q 48 Hours #42.5 grams 07/30/14 vaginal cream (Estrace) amlodipine 10 mg tablet (Norvasc) 5 mg PO DAILY 04/02/23 duloxetine 60 mg capsule,delayed 60 mg PO DAILY 04/02/23 release (Cymbalta) glycerin (adult) 1 supp [place] DAILY PRN 04/02/23 hydrochlorothiazide 25 mg tablet 12.5 mg PO Q OTHER DAY 04/02/23 cyclobenzaprine 10 mg tablet 10 mg PO TID PRN muscle spasm 04/18/23 naloxone 4 mg/actuation nasal 4 mg intranasal Q3M PRN opioid 04/18/23 spray (Narcan) overdose #2 ea bisacodyl 5 mg tablet,delayed 5 mg PO .Take as directed #4 tabs 06/13/23 release (Dulcolax (bisacodyl)) bisacodyl 5 mg tablet,delayed 5 mg PO ONCE colonscopy bowel prep 06/13/23 release (Dulcolax (bisacodyl)) #4 tabs polyethylene glycol 3350 17 238 g PO ONCE colonoscopy prep 06/13/23 gram/dose oral powder #238 grams methocarbamol 500 mg tablet 500 mg PO QID PRN muscle spasm #30 06/16/23 tabs hydrocodone 7.5 mg-acetaminophen 1 tab PO TID PRN pain #90 tabs 06/20/23 325 mg tablet montelukast 10 mg tablet 10 mg PO QHS #90 tabs 06/20/23 metoprolol succinate 25 mg 12.5 mg PO BID 07/05/23 tablet,extended release 24 hr rosuvastatin 20 mg tablet 20 mg PO DAILY 07/05/23 Current Visit Medications: Current Medications Generic Name Dose Route Start Last Admin Trade Name Freq PRN Reason Stop Dose Admin Ringer's Solution 1,000 mls @ 80 mls/hr 07/05/23 06:00 IV 08/03/23 23:59 INFUSION [facility] IV Miscellaneous Supplies 1 each 07/05/23 06:00 Iv Access IV 08/03/23 23:59 DIRECTED [facility] Ondansetron HCl 4 mg 07/05/23 05:44 Ondansetron 4 Mg/2 Ml Vial IVP 08/04/23 05:43 Q4H PRN PRN Nausea / Vomiting Sodium Chloride 0 ml 07/05/23 06:00 Normal Saline Flush 10 Ml Syr IV 08/03/23 23:59 PRN PRN Sodium Chloride 0 ml 07/05/23 06:00 Normal Saline 10 Ml Vial IJ 08/03/23 23:59 DIRECTED PRN Sterile Water 0 ml 07/05/23 06:00 Water,Injection,Sterile 10 Ml Vial IJ 08/03/23 23:59 DIRECTED PRN PFSH Active Problems Active Problems: Problem Status Onset Code Hemorrhoidal skin tag K64.4 Hemorrhoids K64.9 Rectal bleeding K62.5 Diverticulosis K57.90 Positive colorectal cancer screening using Cologuard test R19.5 Posttraumatic stress disorder F43.10 Smoker F17.200 Amenorrhea N91.2 Osteoporosis M81.0 Essential hypertension I10 Mixed hyperlipidemia E78.2 Degenerative joint disease involving multiple joints on both sides of body M15.9 DDD (degenerative disc disease), lumbar M51.36 Sacroiliitis M46.1 IBS (irritable bowel syndrome) K58.9 Allergic rhinitis J30.9 Nerve pain M79.2 Screening for colorectal cancer Z12.11, Z12.12 Medical History Medical History Atrophic vaginitis (11/20/13) Chest pain (12/26/12) Depressive disorder Gallbladder polyp Pain in thoracic spine Surgical History Surgical History Abdominal hysterectomy (~1983) Appendectomy (~06/1996) Bilateral salpingectomy with oophorectomy (~1983) Colonoscopy - MAC (08/13/11) Colitis Diagnostic Laproscopy (~06/1996) Endometriosis History of back surgery History of bilateral oophorectomy Hx laparoscopic cholecystectomy Hx of tonsillectomy nerve repair left median Spinal Fusion 4-5 Status post abdominal hysterectomy Status post appendectomy Status post laparoscopy Status post spinal arthrodesis Tobacco Smoking/Tobacco Use Status: Current every day Tobacco Type: cigarettes Passive smoking exposure: Yes Second hand exposure: Yes Alcohol Alcohol Intake: former Substance Use Substance use: Never Substance use type: does not use Vital Signs and Lab Results Vital Signs Most Recent Vital Signs in EMR: Most Recent Vital Signs Temp Pulse Resp BP Pulse Ox 35.8 C L 73 16 126/68 99 07/05/23 09:37 07/05/23 09:37 07/05/23 09:37 07/05/23 09:37 07/05/23 09:37 Lab Results Blood Type / Crossmatch: No Data to Display Complete Blood Count: White Blood Count 6.52 10^3/uL (4.4-10.8) 06/13/23 14:15 Red Blood Count 4.48 10^6/uL (3.93-5.22) 06/13/23 14:15 Hemoglobin 13.7 g/dL (11.2-15.7) 06/13/23 14:15 Hematocrit 39.6 % (36.0-46.0) 06/13/23 14:15 Platelet Count 277 10^3/uL (130-400) 06/13/23 14:15 Complete Metabolic Panel: No Data to Display Liver Function Panel: No Data to Display Coagulation Panel: No Data to Display Cardiac Panel: No Data to Display Arterial Blood Gas: No Data to Display Venous Blood Gas: No Data to Display Pancreas Panel: No Data to Display Thyroid Panel: No Data to Display Infectious Disease: No Data to Display Blood Cultures: No Data to Display Toxicology Panel: No Data to Display Imaging and Studies Imaging and Studies Study information below may be from another EMR and interpreted by another provider. Please see original notes in EMR for more complete details. Pulmonary Function Summary: 02/05/13: normal study Anesthesia Assessment and Plan Anesthesia History Personal History: No History of Anesthesia Complications Family History: No Family History of Anesthesia Complications Exercise Tolerance Exercise Tolerance: Metabolic Equivalents>4 Pertinent Negatives Pertinent Negatives: No Symptoms of GERD, No Major Cardiovascular Symptoms or Complaints and No Major Pulmonary Symptoms or Complaints Cardiac & Pulmonary Exam Cardiac Exam: Normal S1/S2 Heart Sounds Pulmonary Exam: Clear Bilateral Breath Sounds Implantable Cardiac Device Does patient have a Pacemaker or an ICD?: No Airway Exam Known Difficult Airway: No Mallampati Class: 2 Mouth Opening: Normal (> 3cm) Thyromental Distance: Less than 3 cm Neck Range of Motion: Full ROM Neck Circumference: Normal Teeth Condition: Normal Dentition ASA Classification ASA Score: ASA 2 Emergency Case?: No NPO Status NPO Status: NPO Clears >2 hours, Solids >8 hours Anesthesia Plan Resuscitation Status: Full Code Anesthesia Technique: General Anesthesia Airway Planned: Natural Airway Monitors Used: Standard Monitors
[2023-07-05 09:52] VITALS: BMI 23.6
[2023-07-05] MEDS: Lactated Ringers 1,000 ML 80 ML IV (09:55)
--- NOTE | 2023-07-05 10:14 | BOWEL_PTH ---
PATIENT: Kika Parnell LOC: [facility] U#:[id number] AGE/SX: 68/F ROOM: RE07/05/[address]: Lottie Cortez : 1955 BED: DIS: 07/05/2023 SPEC #: [id number] RECD: 07/05/23 13:16 STATUS: SHANI RE #: [id number] DEBI: 07/05/23 10:[address]: Lottie Cortez DEPT: Surgical Specimen RECD BY: Mandy Leigh ENTERED: 07/05/23 13:18 SP TYPE: Bowel OTHR DR: Ac Moncada, MARIA C Tissues: 1 - BIOPSY BOWEL 2 - BIOPSY BOWEL 3 - SKIN CYST/TAG/DEBRIDEMENT Procedures: GROSS AND MICRO LEVEL 4 IMMUNOPEROXIDASE STAIN GROSS AND MICRO LEVEL 3 Comments: [id number]
[2023-07-05 10:39] VITALS: BP 103/51; PULSE 67; RESP 16; TEMP 36; O2SAT 99
--- NOTE | 2023-07-05 11:00 | W.ANESPOSTOP ---
Postoperative Evaluation Date, Time and Location Date Performed: 07/05/23 Time Performed: 11:01 Patient Location: Day Surgery Unit Vital Signs Most Recent Imported Vital Signs: Most Recent Vital Signs Temp Pulse Resp BP Pulse Ox 36 C L 67 16 103/51 L 99 07/05/23 10:39 07/05/23 10:39 07/05/23 10:39 07/05/23 10:39 07/05/23 10:39 Pain Score Most Recent Pain Score: Most Recent Pain Score Pain Level 0 07/05/23 10:39 Assessment Mental Status: Awake (Alert & Oriented to Patient Baseline) Airway and Respiratory Function: Patent airway with normal (patient baseline) respiratory exam Cardiovascular Function: Hemodynamically Stable Hydration Status: Adequately Hydrated Nausea & Vomiting: No Nausea or Vomiting Pain: Pt. Denies Any Pain Peripheral Nerve Block: Patient did not receive a nerve block
[2023-07-05 11:15] VITALS: BP 128/70; PULSE 63; RESP 16; TEMP 36; O2SAT 99
== END 2023-07-05 11:38 | disposition home or self-care (01) ==
PROVIDERS: PCP Nurse Practitioner Family; Visit Provider Surgery
PROC: 0DJD8ZZ Inspection of Lower Intestinal Tract, Via Natural or Artificial Opening Endoscopic (ICD-10-PCS; CPT 45378; principal; 2023-07-05 10:15)
PROC: (CPT 46040; 2023-07-05 10:15)
DX: Z12.11 Encounter for screening for malignant neoplasm of colon (principal); R19.5 Other fecal abnormalities; Z86.010 Personal history of colon polyps; K57.30 Diverticulosis of large intestine without perforation or abscess without bleeding; K63.5 Polyp of colon; K64.4 Residual hemorrhoidal skin tags; K63.89 Other specified diseases of intestine; K62.89 Other specified diseases of anus and rectum
CPT/HCPCS: 45380; 88305; 88304; 88361

== ENCOUNTER → 2023-07-26 03:00 | Outpatient (CLI) | payer MEDICARE, SELFPAY ==
--- NOTE | 2023-07-26 07:45 | DI.MRI_ITS ---
Exam(s) MR CERVICAL SPINE WO EXAM: MR CERVICAL SPINE WO CLINICAL HISTORY: worsening pain,anterolisthesis,m43.12 TECHNIQUE: Multiplanar multisequence MRI of the cervical spine was performed without intravenous con trast. COMPARISON: No previous for comparison. FINDINGS: BONES: Vertebral body heights are maintained. Intervertebral disc spaces are normal. There is minimal anterolisthesis of C4 on C5. Bone marrow signal intensity is within normal limits. CERVICAL CORD: Craniovertebral junction is unremarkable. The cervical cord is normal size and signal intensity. SOFT TISSUES: Unremarkable. C2-3: No disc herniation or bulge is identified. No significant central spinal canal or neural forami nal stenosis. C3-4: No disc herniation or bulge is identified. No significant central spinal canal or neural forami nal stenosis C4-5: No disc herniation or bulge is identified. There are mild degenerative changes of the right fa cets. No significant central spinal canal or left neural foraminal stenosis. There is mild narrowin g of the right neural foramen. C5-6: No disc herniation or bulge is identified. There are mild degenerative changes of the right fa cets. No significant central spinal canal or left neural foraminal stenosis. There is mild narrowin g of the right neural foramen. C6-7: No disc herniation or bulge is identified. No significant central spinal canal or neural forami nal stenosis C7-T1: No disc herniation or bulge is identified. No significant central spinal canal or neural valencia inal stenosis IMPRESSION: Mild degenerative changes of the right facets at C4-5 and C5-C6 causing mild right neural foraminal n arrowing. DATA REPOSITORY:
--- NOTE | 2023-07-26 13:15 | DI.RAD_ITS ---
Exam(s) XR SHOULDER LT COMPLETE 2+V EXAM: XR SHOULDER LT COMPLETE 2+V CLINICAL HISTORY: fall, LT SHOULDER PAIN, M25.512. TECHNIQUE: 2D digital imaging was performed of the left shoulder. Five images were obtained. AP, G rashey, Y-view and axillary views were obtained. COMPARISON: No exams were available for comparison FINDINGS: BONES: No acute fracture is present. No bony destructive lesion is seen. JOINTS: No dislocation present. Glenohumeral joint is well maintained. There are mild degenerative c hanges at the acromioclavicular joint. SOFT TISSUE: Normal. IMPRESSION: No acute fracture or dislocation. DATA REPOSITORY: RADIATION DOSE DELIVERED:
== END ==
PROVIDERS: PCP Nurse Practitioner Family; Visit Provider Nurse Practitioner Family
DX: M43.12 Spondylolisthesis, cervical region (principal); M25.512 Pain in left shoulder; W19.XXXA Unspecified fall, initial encounter
CPT/HCPCS: 72141; 73030

== ENCOUNTER → 2023-08-15 13:01 | Outpatient (BNVA) | payer MEDICARE, SELFPAY | PROVIDERS: PCP Nurse Practitioner Family; Referring Provider Nurse Practitioner Family; Visit Provider Surgery | DX: Z48.815 Encounter for surgical aftercare following surgery on the digestive system (principal); D01.3 Carcinoma in situ of anus and anal canal; G89.28 Other chronic postprocedural pain | CPT/HCPCS: 99213; 96372; J3301 ==

== ENCOUNTER 2023-08-30 07:26 | Day surgery (SDC) | payer MEDICARE, SELFPAY ==
--- NOTE | 2023-08-29 16:31 | ROE_ITS ---
Date of service: 08/30/23 Time of Service: 10:00 Operative Note Operative Note DATE OF PROCEDURE: 08/30/23 PRE-OP DIAGNOSIS: AIN-II. Anal lesion at the 6 o'clock position POST-OP DIAGNOSIS: same PROCEDURE: Excision of anal lesion at 6 o'clock position for AIN-II SURGEON: Lottie Cortez BUILDER OPERATOR: Caitlin Spangler ANESTHESIA TYPE: Local By Surgeon Refer to Anesthesia Record ESTIMATED BLOOD LOSS: 3 PATHOLOGY: other COMPLICATIONS: None Patient was transported to: PACU Patient's condition: stable Procedure Description: Patient is here today for formal excision of lesion that had previously been excised and was found to have AIN?II no HPV was noted on past. Informed consent is obtained explaining risks and benefits of the procedure including but not limited to: Bleeding, infection, pneumonia, blood clots, complications from anesthesia, chronic pain or numbness patient has a history of chronic pain following multiple surgical procedures) anal stenosis/loss of sphincter control, need for removal of more tissue. Anesthesia is administered per the department of anesthesia Patient is then placed in the prone position with all bony surfaces padded. She is prepped and draped in the usual sterile fashion using a Betadine scrub solution. She received a preoperative multimodality pain management cocktail. Antibiotics are not indicated. Timeout is performed. A Resendiz retractor is used to aid in visualization. The lesion is visualized at the 6 o'clock position. It is grasped with an Allis. A stay suture is placed proximal to the lesion of 3-0 Vicryl. Lesion is excised sharply down to but not including the sphincters. It is approximately 0.5 x 0.5 cm. The incision was closed with 3-0 Vicryl in a running fashion. A marking suture of silk is placed at the 12 o'clock position. There is no bleeding noted. Marcaine impregnated Gelfoam is then placed in the rectum to aid in hemostasis. Sterile dressings are applied. Patient tolerated procedure well without complication and transferred to recovery room in stable condition.
--- NOTE | 2023-08-29 16:33 | W.PM.DSUDISC ---
Date of service: 08/30/23 Time of Service: 09:57 Discharge Plan Disposition Patient Disposition: Home Condition: Good Discharge Details Reason For Visit: Excision of anal lesion AIN-II Attending Provider: Lottie Cortez Primary Care Provider: Ac Jeffery Home Meds and New Rx's Prescriptions: New dibucaine 1 % ointment 1 applic SD QID PRNQty: 56 2RF tramadol 50 mg tablet 50 mg PO Q4H PRNQty: 10 0RF Continued naloxone [Narcan] 4 mg/actuation spray,non-aerosol 4 mg intranasal Q3M PRN (Reason: opioid overdose) Qty: 2 0RF Patient Comments: 07/05/23 pt denies having this medication Rx Instructions: spray 1 dose into ONE nostril; alternate nostrils w each dose until help arrives cetirizine [All Day Allergy (cetirizine)] 10 mg tablet 10 mg PO DAILY PRN multivitamin [Once Daily] 1 EACH tablet 1 tab PO DAILY acetaminophen [Tylenol Extra Strength] 500 MG tablet 2 tab PO PRN polyethylene glycol 3350 510 GM powder 1 dose PO DAILY Qty: 9 Rx Instructions: MIRALAX;DISPENSE 3 MO. SUPPLY cholecalciferol (vitamin D3) 1,000 UNIT capsule 1 cap PO DAILY calcium carbonate-vitamin D3 1 EACH tablet,chewable 2 - 3 tab PO DAILY Rx Instructions: TUMS B Complex Plus Vitamin C 1 EACH capsule 1 cap PO DAILY omega-3 fatty acids-fish oil 1 EACH capsule 1 cap PO DAILY estradiol [Estrace] 42.5 GM cream 2 g VG Q 48 Hours Qty: 42.5 clonazepam [Klonopin] 0.5 MG tablet 0.5 mg PO DAILY PRNQty: 90 hydrochlorothiazide 25 mg tablet 12.5 mg PO Q OTHER DAY glycerin (adult) Suppository 1 supp SD DAILY PRN amlodipine [Norvasc] 10 mg tablet 5 mg PO DAILY duloxetine [Cymbalta] 60 mg capsule,delayed release(DR/EC) 60 mg PO DAILY methocarbamol 500 mg tablet 500 mg PO QID PRN (Reason: muscle spasm) Qty: 30 0RF montelukast 10 mg tablet 10 mg PO QHS Qty: 90 4RF ketorolac 15 mg/mL solution 15 mg IM BID PRN (Reason: pain) Qty: 2 2RF hydrocodone-acetaminophen 7.5-325 mg tablet 1 tab PO TID MDD 3 tab PRN (Reason: pain) Qty: 90 0RF metoprolol succinate 25 mg tablet extended release 24 hr 12.5 mg PO BID rosuvastatin 20 mg tablet 20 mg PO DAILY docusate sodium 100 mg capsule 100 mg PO DAILY Discharge Instructions Additional Instructions: Home Care Instructions after Rectal Surgery Pain control:? Ibuprofen 600mg 6hrs (take w/ food. Do not take on an empty stomach) and Tylenol 1000mg by mouth (ibuprofen 400-600mg) every 8 hours.? Do not take if you have ulcers or sensitivity to aspirin.? Do not take Tylenol if you have hepatitis or liver failure. Alternate the Tylenol and ibuprofen.? Take pain meds continuously for the first 72hrs.? After 72hrs, you can take as needed if you are having pain.? You can also use Dibucaine ointment for pain control- apply directly to surgical site. How to prevent constipation: The first bowel movement after surgery will be painful. Do not let yourself get constipated. Stay on a stool softener for the first two weeks after surgery. ?It is recommended that you use a fiber supplement (Metamucil, Citrucel) daily (1 tablespoon in 8 oz of water). If you do not have a bowel movement daily, use Milk of Magnesia or Miralax. You may have bleeding or drainage after rectal surgery; especially when you move your bowels. Use a sanitary napkin to collect the discharge. If you are passing large clots or having to change the pad more than every 4 hours, call the clinic or go to the ER. You may experience spasms in the rectal muscles. This is normal after surgery and last for about two weeks. They can become more intense with bowel movements. The best remedy is to soak in a bathtub of plain warm water- no Epsom salts, essential oil or soap.? It takes about 10 minutes further the spasm to stop.? You may want to do this after BM as well. It is ok to shower. Avoid soap on the surgical area. Use a pillow to sit on. Follow a mild bland diet. Avoid alcohol, spicy food, citrus, and tomatoes. Avoid strenuous activity (running, jogging, and power walking, swimming, weight lifting) for two weeks. No lifting over 20 pounds for 2 weeks. Activity:: See above Diet:: See above Discharge Orders Discharge Orders: Discharge Order (Routine); Ordered 08/30/23 Ordered By: Lottie Cortez DS: Diagnosis Discharge Diagnosis (1) Other chronic postprocedural pain: Status: Acute (2) Chronic pain disorder: Status: Chronic (3) Anal intraepithelial neoplasia, grade III: Status: Acute Asessment and Plan: The patient is doing well post-op from their [] surgery.? They are having no nausea or vomiting. They are tolerating liquids and a snack. The pt is not having any chest pain or SOB.? Their pain is adequately controlled. They have been able to urinate.? ?HEENT:? no eye pain/drainage/redness/swelling. Mild sore throat ?Cardio- NSR, no chest pain, BP stable- see VS record ?Pulm: no sob or productive cough. No hemoptysis ?Incision- dressing is c/d/i w/ no excessive bleeding or drainage ?I discussed with the patient the findings at the time of surgery and the patient?s progress. ?We reviewed expectations at home; what the patient could expect for recovery time, and in the post-operative period.? We discussed the importance of walking to avoid blood clots and pneumonia.? We discussed and reviewed the patient's post-operative wound care and dressing needs.?? We reviewed their step-madera pain management plan, Rx called to the pharmacy of their choice.? We reviewed activity and limitations-see discharge instructions. We reviewed warning signs, and when to seek medical attention- see d/c instructions.?? Patient was given a postoperative follow-up appointment. Patient verbalized understanding of their postoperative instructions, how do to take care of themselves and their incision, and the pain management plan. Please see discharge instructions.? (4) Environmental allergies: Status: Acute (5) Lumbar post-laminectomy syndrome: Status: Acute (6) Anterolisthesis of cervical spine: Status: Acute (7) Adenomatous polyps: Status: Acute (8) Hemorrhoidal skin tag: Status: Deleted (9) Diverticulosis: Status: Acute (10) IBS (irritable bowel syndrome): Status: Chronic (11) Sacroiliitis: Status: Acute (12) Mixed hyperlipidemia: Status: Acute (13) Essential hypertension: Status: Acute (14) Smoker: Status: Acute (15) Posttraumatic stress disorder: Status: Acute
[2023-08-30] VITALS (10 sets, daily range): BP systolic 98–141; BP diastolic 45–61; PULSE 53–68; RESP 12–22; TEMP 36–36.7; O2SAT 95–100; BMI 24.2
--- NOTE | 2023-08-30 08:21 | W.ANESPRE ---
General Info Date of Service Date Performed: 08/30/23 Height: 5 ft 1 in Weight: 58.1 kg Body Mass Index (BMI): 24.2 Surgical Procedure: Operation Date: 08/30/23 09:40 Proposed Procedure Side Surgeon p Excision skin Lesion rectum, 6 O'clock position Lottie Cortez, Actual Procedure Side Surgeon p Excision skin Lesion rectum, 6 O'clock position Lottie Cortez, DO Meds Allergies and Home Medications Allergies Allergy/AdvReac Type Severity Reaction Status Date / Time silicone [Silicone] Allergy Mild LOCAL Unverified 08/30/23 08:00 REACTION amoxicillin Allergy Unknown Hives Unverified 08/30/23 08:00 cefaclor [Cefaclor] Allergy Unknown RASH, hives Unverified 08/30/23 08:00 gabapentin AdvReac Intermediate Verified 08/30/23 08:01 NSAIDS (Non-Steroidal AdvReac Unknown GI Unverified 08/29/23 11:03 Anti-Inflamma DISTRESS oxycodone [Oxycodone] AdvReac Unknown HALLUCINATI Unverified 08/30/23 08:00 ONS Home Medication Medication Instructions Recorded acetaminophen 500 mg tablet 2 tab PO PRN 01/29/13 (Tylenol Extra Strength) calcium carbonate 500 mg-vitamin 2 - 3 tab PO DAILY 01/29/13 D3 2.5 mcg (100 unit) chewable tablet cholecalciferol (vitamin D3) 25 1 cap PO DAILY 01/29/13 mcg (1,000 unit) capsule multivitamin (Once Daily tablet) 1 tab PO DAILY 01/29/13 omega-3 fatty acids-fish oil 300 1 cap PO DAILY 01/29/13 mg-1,000 mg capsule polyethylene glycol 3350 17 1 dose PO DAILY ##9 01/29/13 gram/dose oral powder vitamin B comp and C no.3 15 mg-10 1 cap PO DAILY 01/29/13 mg-50 mg-5 mg-300 mg capsule (B Complex Plus Vitamin C) clonazepam 0.5 mg tablet (Klonopin) 0.5 mg PO DAILY PRN #90 tabs 07/30/14 estradiol 0.01% (0.1 mg/gram) 2 g vaginal Q 48 Hours #42.5 grams 07/30/14 vaginal cream (Estrace) amlodipine 10 mg tablet (Norvasc) 5 mg PO DAILY 04/02/23 duloxetine 60 mg capsule,delayed 60 mg PO DAILY 04/02/23 release (Cymbalta) glycerin (adult) 1 supp PA DAILY PRN 04/02/23 hydrochlorothiazide 25 mg tablet 12.5 mg PO Q OTHER DAY 04/02/23 naloxone 4 mg/actuation nasal 4 mg intranasal Q3M PRN opioid 04/18/23 spray (Narcan) overdose #2 ea methocarbamol 500 mg tablet 500 mg PO QID PRN muscle spasm #30 06/16/23 tabs montelukast 10 mg tablet 10 mg PO QHS #90 tabs 06/20/23 metoprolol succinate 25 mg 12.5 mg PO BID 07/05/23 tablet,extended release 24 hr rosuvastatin 20 mg tablet 20 mg PO DAILY 07/05/23 cetirizine 10 mg tablet (All Day 10 mg PO DAILY PRN 07/29/23 Allergy (cetirizine)) ketorolac 15 mg/mL injection 15 mg IM BID PRN pain #2 vials 08/09/23 solution hydrocodone 7.5 mg-acetaminophen 1 tab PO TID PRN pain #90 tabs 08/12/23 325 mg tablet docusate sodium 100 mg capsule 100 mg PO DAILY 08/30/23 Current Visit Medications: Current Medications Generic Name Dose Route Start Last Admin Trade Name Freq PRN Reason Stop Dose Admin Acetaminophen 1,000 mg 08/30/23 06:00 Acetaminophen 500 Mg Tab PO 09/28/23 23:59 PREOP JENNIFER Gabapentin 600 mg 08/30/23 06:00 Gabapentin 300 Mg Cap PO 09/28/23 23:59 PREOP JENNIFER Ringer's Solution 1,000 mls @ 80 mls/hr 08/30/23 06:00 IV 09/28/23 23:59 INFUSION JENNIFER Ondansetron HCl 4 mg/ Sodium 52 mls @ 200 mls/hr 08/30/23 04:06 Chloride IVPB 09/29/23 04:05 Q6H PRN PRN IV Miscellaneous Supplies 1 each 08/30/23 06:00 Iv Access IV 09/28/23 23:59 DIRECTED JENNIFER Morphine Sulfate 2 mg 08/30/23 04:06 Morphine 4 Mg/Ml Syr IVP 09/29/23 04:05 Q1H PRN PRN Sodium Biphosphate/Sodium Phosphate 266 ml 08/30/23 06:00 10/24/23 07:43 Na Phosphate Enema 133 Ml Btl PA 08/30/23 23:59 266 ml .PREOP JENNIFER Administration Sodium Chloride 0 ml 08/30/23 06:00 Normal Saline Flush 10 Ml Syr IV 09/28/23 23:59 PRN PRN Sodium Chloride 0 ml 08/30/23 06:00 Normal Saline 10 Ml Vial IJ 09/28/23 23:59 DIRECTED PRN Sterile Water 0 ml 08/30/23 06:00 Water,Injection,Sterile 10 Ml Vial IJ 09/28/23 23:59 DIRECTED PRN Tramadol HCl 50 mg 08/30/23 04:06 Tramadol 50 Mg Tab PO 09/29/23 04:05 Q6H PRN PRN Pain PFSH Active Problems Active Problems: Problem Status Onset Code Other chronic postprocedural pain G89.28 Chronic pain disorder G89.4 Anal intraepithelial neoplasia, grade III D01.3 Environmental allergies Z91.09 Left shoulder pain M25.512 Lumbar post-laminectomy syndrome M96.1 Abdominal pain R10.9 Anterolisthesis of cervical spine M43.12 Adenomatous polyps D36.9 Hemorrhoids K64.9 Rectal bleeding K62.5 Diverticulosis K57.90 Screening for colorectal cancer Z12.11, Z12.12 Nerve pain M79.2 Allergic rhinitis J30.9 IBS (irritable bowel syndrome) K58.9 Sacroiliitis M46.1 DDD (degenerative disc disease), lumbar M51.36 Degenerative joint disease involving multiple joints on both sides of body M15.9 Mixed hyperlipidemia E78.2 Essential hypertension I10 Osteoporosis M81.0 Amenorrhea N91.2 Smoker F17.200 Posttraumatic stress disorder F43.10 Medical History Medical History Gallbladder polyp Pain in thoracic spine Depressive disorder Chest pain (12/26/12) stress induced pt. states she goes into [place] Atrophic vaginitis (11/20/13) Surgical History Surgical History Hx laparoscopic cholecystectomy History of bilateral oophorectomy History of back surgery Hx of tonsillectomy Status post spinal arthrodesis Status post laparoscopy Status post appendectomy Status post abdominal hysterectomy nerve repair left median Spinal Fusion 4-5 Abdominal hysterectomy (~1983) Diagnostic Laproscopy (~06/1996) Endometriosis Colonoscopy - MAC (06/2023) Colitis Bilateral salpingectomy with oophorectomy (~1983) Appendectomy (~06/1996) Tobacco Smoking/Tobacco Use Status: Current every day Tobacco Type: cigarettes Smoking cigarettes per day: 10 Passive smoking exposure: Yes Second hand exposure: Yes Alcohol Alcohol Intake: former Substance Use Substance use: Never Substance use type: does not use Vital Signs and Lab Results Vital Signs Most Recent Vital Signs in EMR: Most Recent Vital Signs Temp Pulse Resp BP Pulse Ox 36.7 C 68 18 124/61 98 08/30/23 08:04 08/30/23 08:04 08/30/23 08:04 08/30/23 08:04 08/30/23 08:04 Lab Results Blood Type / Crossmatch: No Data to Display Complete Blood Count: No Data to Display Complete Metabolic Panel: No Data to Display Liver Function Panel: No Data to Display Coagulation Panel: No Data to Display Cardiac Panel: No Data to Display Arterial Blood Gas: No Data to Display Venous Blood Gas: No Data to Display Pancreas Panel: No Data to Display Thyroid Panel: No Data to Display Infectious Disease: No Data to Display Blood Cultures: No Data to Display Toxicology Panel: No Data to Display Imaging and Studies Imaging and Studies Study information below may be from another EMR and interpreted by another provider. Please see original notes in EMR for more complete details. Pulmonary Function Summary: 02/05/13: normal study Anesthesia Assessment and Plan Anesthesia History Personal History: No History of Anesthesia Complications Family History: No Family History of Anesthesia Complications Exercise Tolerance Exercise Tolerance: Metabolic Equivalents>4 Cardiac & Pulmonary Exam Cardiac Exam: Normal S1/S2 Heart Sounds Pulmonary Exam: Clear Bilateral Breath Sounds Implantable Cardiac Device Does patient have a Pacemaker or an ICD?: No Airway Exam Known Difficult Airway: No Mallampati Class: 2 Mouth Opening: Normal (> 3cm) Thyromental Distance: Less than 3 cm Neck Range of Motion: Full ROM Neck Circumference: Normal Teeth Condition: Normal Dentition ASA Classification ASA Score: ASA 2 Emergency Case?: No NPO Status NPO Status: NPO Clears >2 hours, Solids >8 hours Anesthesia Plan Resuscitation Status: Full Code Anesthesia Technique: General Anesthesia Airway Planned: Endotracheal Tube (Prone) Monitors Used: Standard Monitors and SedLine
[2023-08-30] MEDS: Gabapentin 300 MG CAP 600 MG PO (08:25)
[2023-08-30] MEDS: Acetaminophen 500 MG TAB 1000 MG PO (08:25)
[2023-08-30] MEDS: Lactated Ringers 1,000 ML 80 ML IV (08:44)
[2023-08-30] MEDS: Bupivacaine 0.5% Pres-Free 30 ML VIAL (09:36)
--- NOTE | 2023-08-30 09:38 | BOWEL_PTH ---
PATIENT: Kika Parnell LOC: [facility] U#:[id number] AGE/SX: 68/F ROOM: RE08/30/[address]: Lottie Cortez : 1955 BED: DIS: 08/30/2023 SPEC #: [id number] RECD: 08/30/23 12:39 STATUS: SHANI REQ #: [id number] DEBI: 08/30/23 09:[address]: Lottie Cortez DEPT: Surgical Specimen RECD BY: Mandy Leigh ENTERED: 08/30/23 12:40 SP TYPE: Bowel OTHR DR: Ac Moncada, MARIA C Tissues: 1 - BIOPSY BOWEL Procedures: GROSS AND MICRO LEVEL 4 Comments: [id number]
--- NOTE | 2023-08-30 10:38 | W.ANESPOSTOP ---
Postoperative Evaluation Date, Time and Location Date Performed: 08/30/23 Time Performed: 10:35 Patient Location: Day Surgery Unit Vital Signs Most Recent Imported Vital Signs: Most Recent Vital Signs Temp Pulse Resp BP Pulse Ox 36.2 C L 54 L 13 119/55 L 100 08/30/23 10:35 08/30/23 10:35 08/30/23 10:35 08/30/23 10:35 08/30/23 10:35 Pain Score Most Recent Pain Score: Most Recent Pain Score Pain Level 0 08/30/23 10:35 Assessment Mental Status: Awake (Alert & Oriented to Patient Baseline) Airway and Respiratory Function: Patent airway with normal (patient baseline) respiratory exam Cardiovascular Function: Hemodynamically Stable Hydration Status: Adequately Hydrated Nausea & Vomiting: No Nausea or Vomiting Pain: Pain is tolerable per patient Peripheral Nerve Block: Patient did not receive a nerve block
--- NOTE | 2023-08-30 12:36 | W.PM.DSUDISC ---
Date of service: 08/30/23 Time of Service: 12:37 Discharge Plan Disposition Patient Disposition: Home Condition: Good Discharge Details Reason For Visit: Excision of anal lesion AIN-II Attending Provider: Lottie Cortez Primary Care Provider: Ac Jeffery Home Meds and New Rx's Prescriptions: New dibucaine 1 % ointment 1 applic DC QID PRNQty: 56 2RF tramadol 50 mg tablet 50 mg PO Q4H PRNQty: 10 0RF Continued naloxone [Narcan] 4 mg/actuation spray,non-aerosol 4 mg intranasal Q3M PRN (Reason: opioid overdose) Qty: 2 0RF Patient Comments: 07/05/23 pt denies having this medication Rx Instructions: spray 1 dose into ONE nostril; alternate nostrils w each dose until help arrives cetirizine [All Day Allergy (cetirizine)] 10 mg tablet 10 mg PO DAILY PRN multivitamin [Once Daily] 1 EACH tablet 1 tab PO DAILY acetaminophen [Tylenol Extra Strength] 500 MG tablet 2 tab PO PRN polyethylene glycol 3350 510 GM powder 1 dose PO DAILY Qty: 9 Rx Instructions: MIRALAX;DISPENSE 3 MO. SUPPLY cholecalciferol (vitamin D3) 1,000 UNIT capsule 1 cap PO DAILY calcium carbonate-vitamin D3 1 EACH tablet,chewable 2 - 3 tab PO DAILY Rx Instructions: TUMS B Complex Plus Vitamin C 1 EACH capsule 1 cap PO DAILY omega-3 fatty acids-fish oil 1 EACH capsule 1 cap PO DAILY estradiol [Estrace] 42.5 GM cream 2 g VG Q 48 Hours Qty: 42.5 clonazepam [Klonopin] 0.5 MG tablet 0.5 mg PO DAILY PRNQty: 90 hydrochlorothiazide 25 mg tablet 12.5 mg PO Q OTHER DAY glycerin (adult) Suppository 1 supp DC DAILY PRN amlodipine [Norvasc] 10 mg tablet 5 mg PO DAILY duloxetine [Cymbalta] 60 mg capsule,delayed release(DR/EC) 60 mg PO DAILY methocarbamol 500 mg tablet 500 mg PO QID PRN (Reason: muscle spasm) Qty: 30 0RF montelukast 10 mg tablet 10 mg PO QHS Qty: 90 4RF ketorolac 15 mg/mL solution 15 mg IM BID PRN (Reason: pain) Qty: 2 2RF hydrocodone-acetaminophen 7.5-325 mg tablet 1 tab PO TID MDD 3 tab PRN (Reason: pain) Qty: 90 0RF metoprolol succinate 25 mg tablet extended release 24 hr 12.5 mg PO BID rosuvastatin 20 mg tablet 20 mg PO DAILY docusate sodium 100 mg capsule 100 mg PO DAILY Discharge Instructions Additional Instructions: Home Care Instructions after Rectal Surgery Pain control:? Ibuprofen 600mg 6hrs (take w/ food. Do not take on an empty stomach) and Tylenol 1000mg by mouth (ibuprofen 400-600mg) every 8 hours.? Do not take if you have ulcers or sensitivity to aspirin.? Do not take Tylenol if you have hepatitis or liver failure. Alternate the Tylenol and ibuprofen.? Take pain meds continuously for the first 72hrs.? After 72hrs, you can take as needed if you are having pain.? You can also use Dibucaine ointment for pain control- apply directly to surgical site. How to prevent constipation: The first bowel movement after surgery will be painful. Do not let yourself get constipated. Stay on a stool softener for the first two weeks after surgery. ?It is recommended that you use a fiber supplement (Metamucil, Citrucel) daily (1 tablespoon in 8 oz of water). If you do not have a bowel movement daily, use Milk of Magnesia or Miralax. You may have bleeding or drainage after rectal surgery; especially when you move your bowels. Use a sanitary napkin to collect the discharge. If you are passing large clots or having to change the pad more than every 4 hours, call the clinic or go to the ER. You may experience spasms in the rectal muscles. This is normal after surgery and last for about two weeks. They can become more intense with bowel movements. The best remedy is to soak in a bathtub of plain warm water- no Epsom salts, essential oil or soap.? It takes about 10 minutes further the spasm to stop.? You may want to do this after BM as well. You can do this several times a day. It is ok to shower. Avoid soap on the surgical area. Use a pillow to sit on. Follow a mild bland diet. Avoid alcohol, spicy food, citrus, and tomatoes. Avoid strenuous activity (running, jogging, and power walking, swimming, weight lifting) for two weeks. No lifting over 20 pounds for 2 weeks. Stand Alone Forms: Anesthesia Discharge InstShade, Fritz Russell ([facility]) Referrals: Lottie Cortez DO [OSTEOPATHIC DOCTOR] - 09/12/23 2:00 pm Activity:: See above Diet:: See above Discharge Orders Discharge Orders: Discharge Order (Routine); Ordered 08/30/23 Ordered By: Lottie Cortez DS: Diagnosis Discharge Diagnosis (1) Other chronic postprocedural pain: Status: Acute (2) Chronic pain disorder: Status: Chronic (3) Anal intraepithelial neoplasia, grade III: Status: Acute (4) Environmental allergies: Status: Acute (5) Lumbar post-laminectomy syndrome: Status: Acute (6) Anterolisthesis of cervical spine: Status: Acute (7) Adenomatous polyps: Status: Acute (8) Diverticulosis: Status: Acute (9) IBS (irritable bowel syndrome): Status: Chronic (10) Sacroiliitis: Status: Acute (11) Mixed hyperlipidemia: Status: Acute (12) Essential hypertension: Status: Acute (13) Smoker: Status: Acute (14) Posttraumatic stress disorder: Status: Acute
[2023-08-30] MEDS: Ketorolac 15 MG/ML VIAL IVP (12:55)
[2023-08-30] MEDS: Albuterol/Ipratropium 3 ML UPD VIAL UPD (12:56)
== END 2023-08-30 13:47 | disposition home or self-care (01) ==
LOC: SUR 07:26
PROVIDERS: PCP Nurse Practitioner Family; Visit Provider Surgery
PROC: (CPT 46922; principal; 2023-08-30 09:30)
DX: D01.3 Carcinoma in situ of anus and anal canal (principal); K64.8 Other hemorrhoids; K58.9 Irritable bowel syndrome, unspecified; I10 Essential (primary) hypertension; E78.2 Mixed hyperlipidemia
CPT/HCPCS: 46922; 88305; J1100; J1885; J2001; J2250; J2405; J2704; J7620

== ENCOUNTER → 2023-09-12 13:55 | Outpatient (BNVA) | payer MEDICARE, SELFPAY | PROVIDERS: PCP Nurse Practitioner Family; Referring Provider Nurse Practitioner Family; Visit Provider Surgery | DX: Z48.817 Encounter for surgical aftercare following surgery on the skin and subcutaneous tissue (principal) ==

== ENCOUNTER → 2023-09-23 10:12 | Outpatient (BNVA) | payer MEDICARE, SELFPAY | PROVIDERS: PCP Nurse Practitioner Family; Referring Provider Nurse Practitioner Family; Visit Provider Surgery | DX: K62.9 Disease of anus and rectum, unspecified (principal) | CPT/HCPCS: 99213 ==

== ENCOUNTER 2023-10-07 01:22 | Outpatient (RCR) | payer MEDICARE, SELFPAY ==
[2023-10-07] MEDS: Denosumab 60 MG/ML SYR SC (13:13)
== END 2023-11-06 23:59 | disposition home or self-care (01) ==
LOC: INF 01:22
PROVIDERS: PCP Nurse Practitioner Family; Visit Provider Nurse Practitioner Family
DX: M81.0 Age-related osteoporosis without current pathological fracture (principal)
CPT/HCPCS: 96372; J0897

== ENCOUNTER → 2023-10-18 01:52 | Outpatient (CLI) | payer MEDICARE, SELFPAY ==
--- NOTE | 2023-10-18 08:30 | DI.MAMMO_ITS ---
Exam(s) MAMMO SCREENING EXAM: MAMMO SCREENING CLINICAL HISTORY: screening,Z12.39 TECHNIQUE: Bilateral full field digital CC and MLO mammographic images were obtained with 3D tomosyn thesis and utilizing computer aided detection (CAD). COMPARISON: Available for comparison. FINDINGS: Masses/Architectural Distortion: No suspicious or new nodules. No new areas of architectural distort ion. Microcalcifications: No suspicious pleomorphic-type are seen. Skin Thickening/Nipple Retraction: None. IMPRESSION: 1. No significant interval change with no specific features of malignancy noted. 2. Unless there is more urgent need, screening mammography is recommended, as per [employer] guidelines. BI-RADS Category 1 - Negative Breast Density - Category B - Scattered areas of fibroglandular density Breast density category C or D implies that the patient has dense breast tissue. Dense breast tissue is very common and is not abnormal but dense breast tissue can make it harder to find cancer on a ma mmogram. Also, dense breast tissue may increase their breast cancer risk. This information about the result of the mammogram report was provided to the patient to raise their awareness. Use this report when you speak with the patient about their risks for breast cancer, which includes their family hist ory. At that time, you may recommend for more screening tests (Ultrasound or MRI) as they might be us eful based on their risk. A negative radiographic report should not delay biopsy if a dominant or clinically suspicious mass is present. Up to ten percent of cancers are not identified on mammography. A negative report may reinforce clinical impression. Adenosis and dense breasts may obscure an underlying neoplasm. False positive reports average 6 to 10%. Patient will receive a letter notifying them of these results.
== END ==
PROVIDERS: PCP Nurse Practitioner Family; Visit Provider Nurse Practitioner Family
DX: Z12.31 Encounter for screening mammogram for malignant neoplasm of breast (principal); R92.323 Mammographic fibroglandular density, bilateral breasts
CPT/HCPCS: 77063; 77067

== ENCOUNTER → 2024-03-12 13:25 | Outpatient (BNVA) | payer MEDICARE, SELFPAY | PROVIDERS: PCP Nurse Practitioner Family; Referring Provider Nurse Practitioner Family; Visit Provider Surgery | DX: D01.3 Carcinoma in situ of anus and anal canal (principal); F17.200 Nicotine dependence, unspecified, uncomplicated | CPT/HCPCS: 99213 ==

== ENCOUNTER 2024-04-16 05:48 | Outpatient (RCR) | payer MEDICARE, SELFPAY ==
[2024-04-16] MEDS: Denosumab 60 MG/ML SYR SC (13:11)
== END 2024-05-06 23:59 | disposition home or self-care (01) ==
LOC: INF 05:48
PROVIDERS: PCP Nurse Practitioner Family; Visit Provider Nurse Practitioner Family
DX: M81.0 Age-related osteoporosis without current pathological fracture (principal)
CPT/HCPCS: 96372; J0897

== ENCOUNTER → 2024-05-14 02:46 | Outpatient (CLI) | payer MEDICARE, SELFPAY ==
--- NOTE | 2024-05-14 | DI.MRI_ITS ---
Exam(s) MR LUMBAR SPINE WO EXAM: MR LUMBAR SPINE WO CLINICAL HISTORY: Chronic bilat LBP wo sciatica, M54.50, G89.29;worsening pain w/intermittent. TECHNIQUE: Multiplanar multisequence MRI of the Lumbar spine was performed. COMPARISON: MR MRI - LUMBAR SPINE W/WO CONT from 12/31/2011 CR XR DEXA BONE DENSITY W/WO NAYA from 04/29/2023 CR XR SHOULDER LT COMPLETE 2+V from 07/26/2023 FINDINGS: Bones: The last intervertebral disc space is designated the L5/S1 level for the numbering purpose of this ex amination. The vertebral body heights are well maintained. Alignment: Unremarkable. The marrow signal characteristics are unremarkable. Posterior fusion rods are in place from L2 through L5 which creates artifact. Cord: The conus tip ends at the T12 level. It is of normal size and signal intensity. T12-L1: No focal disc herniation is present. No central spinal canal stenosis.No neural foraminal st enosis. L1-2: No focal disc herniation is present. No central spinal canal stenosis.No neural foraminal sten osis. L2-3: No focal disc herniation is present. No central spinal canal stenosis.No neural foraminal rosaura nosis. L3-4: No focal disc herniation is present. No central spinal canal stenosis.No neural foraminal rosaura nosis. L4-5: No focal disc herniation is present. No central spinal canal stenosis.No neural foraminal sten osis. L5-S1: No focal disc herniation is present. No central spinal canal stenosis.No neural foraminal st enosis. The visualized SI joints and sacrum are unremarkable. Soft tissues: The paraspinal soft tissues are unremarkable. IMPRESSION: Posterior fusion hardware spanning L2 through L5 appears unremarkable. No neural foraminal narrowing or central canal stenosis. No evidence of disc herniation. DATA REPOSITORY:
== END ==
PROVIDERS: PCP Nurse Practitioner Family; Visit Provider Student in an Organized Health Care Education/Training Program
DX: M54.59 Other low back pain (principal); G89.29 Other chronic pain; Z98.1 Arthrodesis status; Z96.82 Presence of neurostimulator
CPT/HCPCS: 72148

== ENCOUNTER 2024-06-27 16:33 | Emergency (ER) | payer MEDICARE, SELFPAY ==
[2024-06-27] VITALS (27 sets, daily range): BP systolic 129–146; BP diastolic 48–87; PULSE 58–73; RESP 7–26; TEMP 36.4–36.8; O2SAT 81–100
--- NOTE | 2024-06-27 16:30 | RT.EKG_ITS ---
APPROVED REPORT Exam: Resting ECG Reason for Exam: dizziness Patient Location: E HR:63 bpm ECG Measurements Heart Rate 63 AXIS DE 140 P 78 QRSd 71 QRS 66 QT 402 T 29 QTc 413 Conclusion Sinus rhythm, rate 63 No STEMI
[2024-06-27 19:41] LABS: Abs Immature Grans 0.02 10^3/uL (0.0-0.06); Absolute Basophil Count 0.06 10^3/uL (0.0-0.2); Absolute Eosinophil Count 0.07 10^3/uL (0.0-0.7); Absolute Monocyte Count 0.67 10^3/uL (0.1-0.8); Absolute Neutrophil Count 4.54 10^3/uL (1.2-6.7); Basophils % 0.7 %; Eosinophils % 0.8 %; HCT 42.2 % (36.0-46.0); HGB 14.5 g/dL (11.2-15.7); Immature Grans % 0.2 %; Lymphocytes % 37.4 %; MCH 30.9 pg (27.0-33.0); MCHC 34.4 % (32.0-36.0); MCV 90 fL (80-95); MPV 9.2 fL (8.0-11.0); Monocytes % 7.8 %; Neutrophils % 53.1 %; Platelet Count 255 10^3/uL (130-400); RBC 4.69 10^6/uL (3.93-5.22); RDW 12.9 % (11.7-14.6); WBC 8.56 10^3/uL (4.4-10.8)
--- NOTE | 2024-06-27 20:00 | DI.CT_ITS ---
Exam(s) CT BRAIN NECK CTA EXAM: CT BRAIN NECK CTA CLINICAL HISTORY: dizziness, h/o anterolithesis. TECHNIQUE: Imaging Protocol: Axial CT angiography was performed with multi-slice acquisition and mu lti-planar and MIP reconstructions. CONTRAST MATERIAL: Intravenous: Omnipaque 350 Contrast volume:70 ml COMPARISON: MR MR CERVICAL SPINE WO from 07/26/2023 FINDINGS: CT Head W/O and W contrast: Ventricles and Extra axial spaces: Normal in size and morphology for the patient's age. Hemorrhage: None. Cerebral parenchyma: No evidence of acute infarct or mass. Midline shift: None. Brainstem/Cerebellum: No acute findings.. Calvarium: Normal. Visualized Paranasal sinuses/Mastoids: Clear. Soft Tissues: Unremarkable. Enhancement: Normal. CTA Brain W: Internal Carotid Arteries: Petrous: Normal. Cavernous: Normal. Cerebral: Normal. Middle Cerebral Arteries: Right: No aneurysm, occlusion or significant stenosis. Left: No aneurysm, occlusion or significant stenosis. Anterior Cerebral Arteries: Right: No aneurysm, occlusion or significant stenosis. Left: No aneurysm, occlusion or significant stenosis. Posterior cerebral Arteries: Right: No aneurysm, occlusion or significant stenosis. Left: No aneurysm, occlusion or significant stenosis. Vertebral Arteries: Right: No aneurysm, occlusion or significant stenosis. Left: No aneurysm, occlusion or significant stenosis. Basilar Artery: No aneurysm, occlusion or significant stenosis. Vessel is diminutive and terminates in superior cerebellar arteries. CTA Neck W: Common Carotid: No significant plaque. Right: No dissection, occlusion or significant stenosis. Left: No dissection, occlusion or significant stenosis. External Carotid: Right: No dissection, occlusion or significant stenosis. Left: No dissection, occlusion or significant stenosis. Internal Carotid: No significant plaque. Right: No dissection, occlusion or significant stenosis. Left: No dissection, occlusion or significant stenosis. Vertebral Artery: Right: No dissection, occlusion or significant stenosis. Left: No dissection, occlusion or significant stenosis. Lung Apices: No acute findings. Bones: No acute abnormality. Soft Tissues: Normal. IMPRESSION: 1. CTA brain: Normal CTA examination of the [place]. 2. Head CT: Unremarkable CT Head. 3. CTA neck: Normal CTA examination of the neck. RADIATION DOSE DELIVERED: Total DLP DATA REPOSITORY: All CT scans at this facility are submitted to the National Radiology Data Registry (NRDR) Dose Index Registry (DIR) with the [employer] ([employer]). RADIATION OPTIMIZATION: All CT scans at this facility use at least one of these dose optimization te chniques: automated exposure control; mA and/or kV adjustment per patient size (includes targeted exa ms where dose is matched to clinical indication); or iterative reconstruction.
--- NOTE | 2024-06-27 20:07 | ED.GENADUL_ITS ---
Discharge Plan Discharge Details Chief Complaint: Dizzy/Sync Primary Care Provider: Ac Jeffery ED Provider: Grace Gonzales Home Meds and New Rx's Prescriptions: No Action naloxone [Narcan] 4 mg/actuation spray,non-aerosol 4 mg intranasal Q3M PRN (Reason: opioid overdose) Qty: 2 0RF Patient Comments: 07/05/23 pt denies having this medication Rx Instructions: spray 1 dose into ONE nostril; alternate nostrils w each dose until help arrives albuterol sulfate 90 mcg/actuation HFA aerosol inhaler 2 inh inhalation Q6H PRN (Reason: shortness of breath or wheezing) Qty: 18 4RF cetirizine [All Day Allergy (cetirizine)] 10 mg tablet 10 mg PO DAILY PRN Adult 50 Plus Probiotic 4 billion cell capsule 4,000 mmu cells PO DAILY Rx Instructions: administer with a meal amlodipine [Norvasc] 10 mg tablet 5 mg PO DAILY Qty: 90 4RF multivitamin [Once Daily] 1 EACH tablet 1 tab PO DAILY acetaminophen [Tylenol Extra Strength] 500 MG tablet 2 tab PO PRN polyethylene glycol 3350 510 GM powder 1 dose PO DAILY Qty: 9 Rx Instructions: MIRALAX;DISPENSE 3 MO. SUPPLY cholecalciferol (vitamin D3) 1,000 UNIT capsule 1 cap PO DAILY calcium carbonate-vitamin D3 1 EACH tablet,chewable 2 - 3 tab PO DAILY Rx Instructions: TUMS B Complex Plus Vitamin C 1 EACH capsule 1 cap PO DAILY omega-3 fatty acids-fish oil 1 EACH capsule 1 cap PO DAILY glycerin (adult) Suppository 1 supp NC DAILY PRN montelukast 10 mg tablet 10 mg PO QHS Qty: 90 4RF estradiol [Estrace] 0.01 % (0.1 mg/gram) cream 2 g VG Q 48 Hours Qty: 42.5 0RF (DME) Syringe 3cc/25Gx1 3 mL 25 gauge x 1 syringe See Rx Instructions .Route Qty: 100 0RF Rx Instructions: As directed metoprolol succinate 25 mg tablet extended release 24 hr 12.5 mg PO BID Qty: 90 4RF duloxetine [Cymbalta] 60 mg capsule,delayed release(DR/EC) 60 mg PO DAILY Qty: 90 4RF hydrochlorothiazide 25 mg tablet 12.5 mg PO Q OTHER DAY Qty: 90 4RF clonazepam [Klonopin] 0.5 mg tablet 0.5 mg PO DAILY PRN (Reason: anxiety) Qty: 90 1RF rosuvastatin 20 mg tablet 20 mg PO DAILY Qty: 90 4RF hydrocodone-acetaminophen 7.5-325 mg tablet 1 tab PO TID MDD 3 tab PRN (Reason: pain) Qty: 90 0RF ketorolac 15 mg/mL solution 15 mg IM BID PRN (Reason: pain) Qty: 4 2RF diazepam 5 mg tablet 5 mg PO QHS PRN (Reason: sleep) Qty: 10 0RF docusate sodium 100 mg capsule 100 mg PO DAILY HPI General Date/Time Provider Initiated Documentation: 06/27/24 19:22 . HPI Narrative: Tabatha is a 69-year-old female with history of anterolisthesis of cervical spine, HTN, HLD, and osteoporosis who presents to the emergency department today for evaluation of dizziness. She reports that in the middle the night she felt neck pain consistent with subluxation of her C-spine accompanied by dizziness when she turns her head. She reports that this resolves when she brings her head back to midline, also occurs when she looks down. She denies fever/chills, congestion, sore throat, cough, chest pain, shortness of breath, vision change, nausea/vomiting, abdominal pain, gait problems, extremity weakness/numbness, change in bowel or bladder function. She did take half of Valium with good improvement of symptoms, says that she only has mild dizziness now when turning her head and decrease neck pain. She denies personal or strong family history of cardiac disease. She is a 50-year smoker. Physical exam reassuring. No nystagmus. PERRL, EOMs intact. Test of skew negative. Cranial nerves 2 through 12 intact as tested. Normal gait, though does have imbalance with heel toe walk because he requires she looks down. Normal finger finger, finger-nose, heel myers. Easy work of breathing, lung sounds clear bilaterally. Normal heart sounds. DDx includes but is not limited to: Posterior stroke, vertebral artery dissection, BPPV, dehydration, electrolyte imbalance, thyroid dysfunction, other organ dysfunction such as kidney or liver, cardiac arrhythmia I independently interpreted the following tests: CBC, CMP, and troponin reassuring. Very low suspicion for ACS based on presentation, no repeat troponin performed. CTA brain and neck negative for occlusion or stenosis. While in the emergency department Tabatha received 2.5 mg Valium and Toradol with full improvement of symptoms, is no longer to elicit dizziness with turning her head. Overall workup today very reassuring. Unclear etiology of dizziness, though possibly related to neck spasms, BPPV is also possible. Recommend close follow- up with PCP for further evaluation and management. Reviewed red flags indicate need for return to emergency care. She voiced agreement with plan of care. Related Data Home Medications ?Medication ?Instructions ?Recorded ?Confirmed acetaminophen 500 mg tablet 2 tab PO PRN 01/29/13 06/27/24 (Tylenol Extra Strength) calcium carbonate 500 mg-vitamin 2 - 3 tab PO DAILY 01/29/13 06/27/24 D3 2.5 mcg (100 unit) chewable tablet cholecalciferol (vitamin D3) 25 1 cap PO DAILY 01/29/13 06/27/24 mcg (1,000 unit) capsule multivitamin (Once Daily tablet) 1 tab PO DAILY 01/29/13 06/27/24 omega-3 fatty acids-fish oil 300 1 cap PO DAILY 01/29/13 06/27/24 mg-1,000 mg capsule polyethylene glycol 3350 17 1 dose PO DAILY ##9 01/29/13 06/27/24 gram/dose oral powder vitamin B comp and C no.3 15 mg-10 1 cap PO DAILY 01/29/13 06/27/24 mg-50 mg-5 mg-300 mg capsule (B Complex Plus Vitamin C) glycerin (adult) 1 supp NC DAILY PRN 04/02/23 06/27/24 naloxone 4 mg/actuation nasal 4 mg intranasal Q3M PRN opioid 04/18/23 06/27/24 spray (Narcan) overdose #2 ea montelukast 10 mg tablet 10 mg PO QHS #90 tabs 06/20/23 06/27/24 cetirizine 10 mg tablet (All Day 10 mg PO DAILY PRN 07/29/23 06/27/24 Allergy (cetirizine)) docusate sodium 100 mg capsule 100 mg PO DAILY 08/30/23 06/27/24 estradiol 0.01% (0.1 mg/gram) 2 g vaginal Q 48 Hours #42.5 grams 10/14/23 06/27/24 vaginal cream (Estrace) lactobacillus combination no.9 4 4,000 mmu cells PO DAILY 10/26/23 06/27/24 billion cell capsule (Adult 50 Plus Probiotic) syringe with needle 3 mL 25 gauge #100 ea 12/06/23 06/27/24 x 1 (Syringe) metoprolol succinate 25 mg 12.5 mg (1/2 x 25 mg) PO BID #90 12/12/23 06/27/24 tablet,extended release 24 hr tabs duloxetine 60 mg capsule,delayed 60 mg PO DAILY #90 caps 12/19/23 06/27/24 release (Cymbalta) clonazepam 0.5 mg tablet (Klonopin) 0.5 mg PO DAILY PRN anxiety #90 01/16/24 06/27/24 tabs hydrochlorothiazide 25 mg tablet 12.5 mg (1/2 x 25 mg) PO Q OTHER 01/16/24 06/27/24 DAY #90 tabs amlodipine 10 mg tablet (Norvasc) 5 mg (1/2 x 10 mg) PO DAILY #90 02/17/24 06/27/24 tabs rosuvastatin 20 mg tablet 20 mg PO DAILY #90 tabs 05/01/24 06/27/24 albuterol sulfate 90 mcg/actuation 2 inh inhalation Q6H PRN shortness 06/01/24 06/27/24 aerosol inhaler of breath or wheezing #18 grams hydrocodone 7.5 mg-acetaminophen 1 tab PO TID PRN pain #90 tabs 06/01/24 06/27/24 325 mg tablet ketorolac 15 mg/mL injection 15 mg IM BID PRN pain #4 vials 06/19/24 06/27/24 solution diazepam 5 mg tablet 5 mg PO QHS PRN sleep #10 tabs 06/20/24 06/27/24 Previous Rx's ?Medication ?Instructions ?Recorded naloxone 4 mg/actuation nasal 4 mg intranasal Q3M PRN opioid 04/18/23 spray (Narcan) overdose #2 ea montelukast 10 mg tablet 10 mg PO QHS #90 tabs 06/20/23 estradiol 0.01% (0.1 mg/gram) 2 g vaginal Q 48 Hours #42.5 grams 10/14/23 vaginal cream (Estrace) syringe with needle 3 mL 25 gauge #100 ea 12/06/23 x 1 (Syringe) metoprolol succinate 25 mg 12.5 mg (1/2 x 25 mg) PO BID #90 12/12/23 tablet,extended release 24 hr tabs duloxetine 60 mg capsule,delayed 60 mg PO DAILY #90 caps 12/19/23 release (Cymbalta) clonazepam 0.5 mg tablet (Klonopin) 0.5 mg PO DAILY PRN anxiety #90 01/16/24 tabs hydrochlorothiazide 25 mg tablet 12.5 mg (1/2 x 25 mg) PO Q OTHER 01/16/24 DAY #90 tabs amlodipine 10 mg tablet (Norvasc) 5 mg (1/2 x 10 mg) PO DAILY #90 02/17/24 tabs rosuvastatin 20 mg tablet 20 mg PO DAILY #90 tabs 05/01/24 albuterol sulfate 90 mcg/actuation 2 inh inhalation Q6H PRN shortness 06/01/24 aerosol inhaler of breath or wheezing #18 grams hydrocodone 7.5 mg-acetaminophen 1 tab PO TID PRN pain #90 tabs 06/01/24 325 mg tablet ketorolac 15 mg/mL injection 15 mg IM BID PRN pain #4 vials 06/19/24 solution diazepam 5 mg tablet 5 mg PO QHS PRN sleep #10 tabs 06/20/24 Allergies Allergy/AdvReac Type Severity Reaction Status Date / Time silicone (Silicone) Allergy Mild LOCAL Unverified 06/27/24 19:20 REACTION amoxicillin Allergy Unknown Hives Unverified 06/27/24 19:20 cefaclor (Cefaclor) Allergy Unknown RASH, hives Unverified 06/27/24 19:20 gabapentin AdvReac Intermediate restless Verified 06/27/24 19:20 legs NSAIDS (Non-Steroidal AdvReac Unknown GI Unverified 06/27/24 19:20 Anti-Inflamma DISTRESS oxycodone (Oxycodone) AdvReac Unknown HALLUCINATI Unverified 06/27/24 19:20 ONS General Stated Complaint: Dizzy/Sync JENNIE: 3 Review of Systems Narrative: see HPI Exam Const General: cooperative, healthy appearing, comfortable, no acute distress, well developed and well groomed Nutritional Appearance: average body habitus HENMT Head: normal to inspection Ears: hearing grossly normal bilaterally General nose exam: external nose normal Face and sinus: normal facial exam Mouth: oral mucosae normal Eyes Pupils: PERRL EOM: EOM intact bilaterally Neck Neck: normal visual inspection, full ROM, no meningeal signs and trachea midline Resp Effort & Inspection: normal respiratory effort and able to speak in complete sentences Auscultation: clear to auscultation bilaterally Cardio Jugular venous pressure: no JVD Rate: regular rate Rhythm: regular rhythm Back/Spine/Pelvis Cervical Spine: normal cervical lordosis and cervical ROM normal (Slightly decreased range of motion to neck consistent with chronic neck racquel) Thoracic/Lumbar Spine: thoracic and lumbar spine normal to inspection Skin General skin exam: no rashes or lesions noted Neuro General: gait normal, tone normal, moves all extremities, no meningeal signs, no focal motor deficits and CN's II-XI intact bilaterally Cranial Nerves: CN's II-XI intact bilaterally, EOM intact bilaterally, no nystagmus and facial strength normal Cognition: normal cognition Speech: speech normal Gait: normal gait Motor: muscle tone normal throughout and strength 5/5 throughout Coordination: kcseys-pr-[id number] test normal, fzhc-[id number] test normal, Romberg test normal and rapid alternating movement UE normal Course Vital Signs Vital signs: Vital Signs Temperature 36.4 C 06/27/24 16:38 Pulse 70 06/27/24 16:38 Respiratory Rate 15 06/27/24 16:38 Blood Pressure 146/75 H 06/27/24 16:38 Pulse Oximetry 98 06/27/24 16:38 Temperature 36.4 C 06/27/24 16:38 Temperature Source Tympanic 06/27/24 16:38 Pulse 61 06/27/24 19:48 Pulse 61 06/27/24 19:50 Respiratory Rate 8 L 06/27/24 19:50 Respiratory Effort Normal, Non-Labored 06/27/24 19:13 Respiratory Depth Normal 06/27/24 19:13 Respiratory Pattern Normal 06/27/24 19:13 Blood Pressure 142/87 H 06/27/24 19:48 Blood Pressure Mean 105 06/27/24 19:48 Blood Pressure Position Sitting 06/27/24 16:38 Pulse Oximetry 100 06/27/24 19:50 Oxygen Delivery Method Room Air 06/27/24 16:38 Oxygen Flow Rate 0 06/27/24 16:38 Pain Level 6 06/27/24 19:46 Lab/Test Results Lab/Test Results: Laboratory Tests Range/Units 06/27/24 19:32 WBC (4.4-10.8) 10^3/uL 8.56 RBC (3.93-5.22) 10^6/uL 4.69 Hgb (11.2-15.7) g/dL 14.5 Hct (36.0-46.0) % 42.2 MCV (80-95) fL 90 MCH (27.0-33.0) pg 30.9 MCHC (32.0-36.0) % 34.4 RDW (11.7-14.6) % 12.9 Plt Count (130-400) 10^3/uL 255 MPV (8.0-11.0) fL 9.2 Immature Gran % % 0.2 Neutrophils % % 53.1 Lymphocytes % % 37.4 Monocytes % % 7.8 Eosinophils % % 0.8 Basophils % % 0.7 Nucleated RBC % (0.0-0.3) % 0.0 Absolute Neutrophils (1.2-6.7) 10^3/uL 4.54 Absolute Lymphocytes (1.2-3.4) 10^3/uL 3.20 Absolute Monocytes (0.1-0.8) 10^3/uL 0.67 Absolute Eosinophils (0.0-0.7) 10^3/uL 0.07 Absolute Basophils (0.0-0.2) 10^3/uL 0.06 Medical Decision Making Imaging Data Radiologic Study: Radiologist's impression: PROCEDURE INFORMATION: Exam: CTA Head Without And With Contrast, Arteriography Exam date and time: 06/27/2024 8:29 PM Age: 69 years old Clinical indication: Other: Dizziness, h/o anterolithesis TECHNIQUE: Imaging protocol: Computed tomographic angiography of the head without and with contrast. Exam focused on the arteries. 3D rendering (Not supervised by radiologist): MIP and/or 3D reconstructed images were created by the technologist. Contrast material: 350; Contrast volume: 70 ml; Contrast route: INTRAVENOUS (IV); COMPARISON: MR CERVICAL SPINE WO 07/26/2023 12:51 PM FINDINGS: ANTERIOR CIRCULATION: Right internal carotid artery: Intracranial segment is patent with no significant s tenosis or occlusion. No aneurysm. Right middle cerebral artery: No occlusion or significant stenosis. No aneurysm. Right anterior cerebral artery: No occlusion or significant stenosis. No aneurysm. Left internal carotid artery: Intracranial segment is patent with no significant stenosis. No aneurysm. Left middle cerebral artery: No occlusion or significant stenosis. No aneurysm. Left anterior cerebral artery: No occlusion or significant stenosis. No aneurysm. POSTERIOR CIRCULATION: Right vertebral artery: No occlusion or significant stenosis. No aneurysm. Left vertebral artery: No occlusion or significant stenosis. No aneurysm. TABATHA LOVE Preliminary Radiology Report Page 2 of 3 Basilar artery: No occlusion or significant stenosis. No aneurysm. Vessel is hypoplastic terminating in the superior cerebellar arteries. Right posterior cerebral artery: No occlusion or significant stenosis. No aneurysm. Patent posterior communicating artery. Left posterior cerebral artery: No occlusion or significant stenosis. No aneurysm. Patent posterior communicating artery. HEAD: Brain: Noncontrast brain shows no hemorrhage or mass. No definite infarcts seen at this time. Mild white matter microangiopathic changes. No midline shift. Cerebral ventricles: Normal. No ventriculomegaly. Bones: Unremarkable. No acute fracture. Paranasal sinuses: Visualized sinuses are normal. No fluid levels. Mastoid air cells: Visualized mastoids are normal. No mastoid effusion. Soft tissues: Unremarkable. IMPRESSION: 1. No large vessel occlusion. 2. Unremarkable CT head. PROCEDURE INFORMATION: Exam: CTA Neck Without And With Contrast Exam date and time: 06/27/2024 8:29 PM Age: 69 years old Clinical indication: Other: Dizziness, h/o anterolithesis TECHNIQUE: Imaging protocol: Computed tomographic angiography of the neck without and with contrast. Exam focused on the cervical segments of the vasculature. 3D rendering (Not supervised by radiologist): MIP and/or 3D reconstructed images were created by the technologist. Contrast material: 350; Contrast volume: 70 ml; Contrast route: INTRAVENOUS (IV); COMPARISON: MR CERVICAL SPINE WO 07/26/2023 12:51 PM FINDINGS: Right common carotid artery: No stenosis. No dissection or occlusion. Right internal carotid artery: No stenosis of the extracranial segment. No dissection or occlusion. Right external carotid artery: No occlusion or stenosis of the origin. Left common carotid artery: No stenosis. No dissection or occlusion. Left internal carotid artery: No stenosis of the extracranial segmen t. No dissection or occlusion. Left external carotid artery: No occlusion or stenosis of the origin. 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 If there is a discrepancy between the preliminary and final interpretation, please notify [email or web address] via [email or web address]. If you do not have access to our QA portal, call our QA team at [phone] CONFIDENTIALITY STATEMENT This report is intended only for the use of the referring physician, and only in accordance with law, If you received this in error, call [phone] Page 3 of 3 Right vertebral artery: No stenosis. No dissection or occlusion. Left vertebral artery: No stenosis. No dissection or occlusion. Soft tissues: Normal. No significant soft tissue swelling. Bones/joints: No acute fracture. IMPRESSION: No stenosis or occlusion. 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 states she goes into [place] Atrophic vaginitis (11/20/13) Surgical History Lesion of rectum (~08/2023) Hx laparoscopic cholecystectomy History of bilateral oophorectomy History of back surgery Hx of tonsillectomy Status post spinal arthrodesis Status post laparoscopy Status post appendectomy Status post abdominal hysterectomy nerve repair left median Spinal Fusion 4-5 Abdominal hysterectomy (~1983) Diagnostic Laproscopy (~06/1996) Endometriosis Colonoscopy - MAC (06/2023) Colitis Bilateral salpingectomy with oophorectomy (~1983) Appendectomy (~06/1996) Family History Mother , 86 Alzheimer's disease Father , 82 Essential hypertension Personal history of malignant neoplasm LUNG Heart disease Hyperlipidemia Lung cancer Sister Essential hypertension Sister Hypothyroidism Brother Hyperlipidemia Alcohol use disorder Grandfather , 83 Essential hypertension Heart disease Hyperlipidemia Grandfather , 84 Essential hypertension Heart disease Hyperlipidemia Social History (Updated 06/15/24 @ 14:02 by Beth Alberts) Smoking/Tobacco Use Status: Current every day Tobacco Type: cigarettes Tobacco: How many years used: 50 Quit status: not considering quitting Second Hand Exposure: Yes Smoking risk assessment performed?: Yes Alcohol Intake: never Drug use: Never Substance use type: does not use Caregiver/Support person: No Household members: none Housing: house Communication Needs: None Do you need help understanding health information?: Never Pets and animals: Yes Pets and animals: dog(s) Sexually active: No What is your relationship status?: never How often do you talk on the phone with friends or family?: three or more times per week How often do you get together with friends or relatives?: once per week How often do you attend mu-ism or presybeterian services?: decline to answer Do you belong to any clubs or organized social groups?: no Panel score (0-1 are the most socially isolated patients): 1 What type of physical activity do you participate in: walking Duration: 30-45 minutes/day Frequency: 5-6 times per week Millie/Baptist: [employer] Special millie needs: No Seatbelt use: always Drive intox or ride w/intox marine engine driver: No Do you feel safe at home: Yes Do you feel safe in your relationship?: Yes
[2024-06-27 20:09] LABS: ALT 27 U/L (14-59); AST 24 U/L (15-37); Albumin 4.5 g/dL (3.4-5.0); Alkaline Phosphatase 53 U/L (46-116); Anion Gap 9.2 mmol/L (3-11); BUN 11 mg/dL (7-18); Bilirubin, Total 0.37 mg/dL (0.2-1.0); CO2 25.8 mmol/L (21.0-32.0); CREATININE 0.9 mg/dL (0.55-1.02); Calcium 9.9 mg/dL (8.5-10.1); Chloride 98 mmol/L (98-107); Estimated GFR 70.07 (mL/min/1.73m2); Glucose 104 mg/dL (74-106); Magnesium 1.8 mg/dL (1.8-2.4); Potassium 3.8 mmol/L (3.5-5.1); Sodium 133 mmol/L (136-145); TSH 1.57 uIU/Ml (0.36-3.74); Total Protein 7.6 g/dL (6.4-8.2); Troponin I < 50 ng/L (< or =60)
[2024-06-27] MEDS: diazePAM 2 MG TAB PO (20:21)
[2024-06-27] MEDS: Ketorolac 15 MG/ML VIAL IVP (20:22)
[2024-06-27] MEDS: Normal Saline - Diluent 50 ML VIAL IJ (20:27)
[2024-06-27] MEDS: Omnipaque 350 MG/ML 100 ML BTL IJ (20:28)
--- NOTE | 2024-06-27 21:23 | DI.VRAD_ITS ---
PROCEDURE INFORMATION: Exam: CTA Head Without And With Contrast, Arteriography Exam date and time: 06/27/2024 8:29 PM Age: 69 years old Clinical indication: Other: Dizziness, h/o anterolithesis TECHNIQUE: Imaging protocol: Computed tomographic angiography of the head without and with contrast. Exam focused on the arteries. 3D rendering (Not supervised by radiologist): MIP and/or 3D reconstructed images were created by the technologist. Contrast material: 350; Contrast volume: 70 ml; Contrast route: INTRAVENOUS (IV); COMPARISON: MR CERVICAL SPINE WO 07/26/2023 12:51 PM FINDINGS: ANTERIOR CIRCULATION: Right internal carotid artery: Intracranial segment is patent with no significant stenosis or occlusion. No aneurysm. Right middle cerebral artery: No occlusion or significant stenosis. No aneurysm. Right anterior cerebral artery: No occlusion or significant stenosis. No aneurysm. Left internal carotid artery: Intracranial segment is patent with no significant stenosis. No aneurysm. Left middle cerebral artery: No occlusion or significant stenosis. No aneurysm. Left anterior cerebral artery: No occlusion or significant stenosis. No aneurysm. POSTERIOR CIRCULATION: Right vertebral artery: No occlusion or significant stenosis. No aneurysm. Left vertebral artery: No occlusion or significant stenosis. No aneurysm. Basilar artery: No occlusion or significant stenosis. No aneurysm. Vessel is hypoplastic terminating in the superior cerebellar arteries. Right posterior cerebral artery: No occlusion or significant stenosis. No aneurysm. Patent posterior communicating artery. Left posterior cerebral artery: No occlusion or significant stenosis. No aneurysm. Patent posterior communicating artery. HEAD: Brain: Noncontrast brain shows no hemorrhage or mass. No definite infarcts seen at this time. Mild white matter microangiopathic changes. No midline shift. Cerebral ventricles: Normal. No ventriculomegaly. Bones: Unremarkable. No acute fracture. Paranasal sinuses: Visualized sinuses are normal. No fluid levels. Mastoid air cells: Visualized mastoids are normal. No mastoid effusion. Soft tissues: Unremarkable. IMPRESSION: 1. No large vessel occlusion. 2. Unremarkable CT head. PROCEDURE INFORMATION: Exam: CTA Neck Without And With Contrast Exam date and time: 06/27/2024 8:29 PM Age: 69 years old Clinical indication: Other: Dizziness, h/o anterolithesis TECHNIQUE: Imaging protocol: Computed tomographic angiography of the neck without and with contrast. Exam focused on the cervical segments of the vasculature. 3D rendering (Not supervised by radiologist): MIP and/or 3D reconstructed images were created by the technologist. Contrast material: 350; Contrast volume: 70 ml; Contrast route: INTRAVENOUS (IV); COMPARISON: MR CERVICAL SPINE WO 07/26/2023 12:51 PM FINDINGS: Right common carotid artery: No stenosis. No dissection or occlusion. Right internal carotid artery: No stenosis of the extracranial segment. No dissection or occlusion. Right external carotid artery: No occlusion or stenosis of the origin. Left common carotid artery: No stenosis. No dissection or occlusion. Left internal carotid artery: No stenosis of the extracranial segment. No dissection or occlusion. Left external carotid artery: No occlusion or stenosis of the origin. Right vertebral artery: No stenosis. No dissection or occlusion. Left vertebral artery: No stenosis. No dissection or occlusion. Soft tissues: Normal. No significant soft tissue swelling. Bones/joints: No acute fracture. IMPRESSION: No stenosis or occlusion. REFERENCES: NASCET CRITERIA. The degree of stenosis in the cervical segment of the internal carotid artery is based on NASCET criteria. Normal is no stenosis. Mild is less than 50% stenosis. Moderate is 50-69% stenosis. Severe is 70% to 99% stenosis. Total occlusion is no detectable patent lumen. Dictated and Authenticated by: David Valentine MD. Ordering:JOSE R Edwards MD
--- NOTE | 2024-06-28 04:48 | SUR.INTRAOP ---
Pt placed on care management referral list to be seen by PCP Ac Jeffery within 1 week for Dizziness and neck pain per ER provider Glenn
== END 2024-06-27 22:08 | disposition home or self-care (01) ==
PROVIDERS: Emergency Provider Nurse Practitioner Family; PCP Nurse Practitioner Family
DX: R42 Dizziness and giddiness (principal); M54.2 Cervicalgia
CPT/HCPCS: 70496; 70498; 80053; 93005; 96374; 99285; 83735; 84443; 84484; 85025; 93010; 99283; J1885; J3490

== ENCOUNTER 2024-08-08 01:16 | Outpatient (CLI) | payer MEDICARE, SELFPAY ==
--- NOTE | 2024-08-08 13:45 | DI.MRI_ITS ---
Exam(s) MR CERVICAL SPINE WO EXAM: MR CERVICAL SPINE WO CLINICAL HISTORY: anterolisthesis,m43.12,dizziness,r42 TECHNIQUE: Multiplanar multisequence MRI of the cervical spine was performed without intravenous con trast. COMPARISON: MR MR CERVICAL SPINE WO from 07/26/[address] BRAIN NECK CTA from 06/27/2024 FINDINGS: BONES: Cervical vertebral body heights are maintained. There is stable mild loss of height of the T4 and T5 vertebral bodies. Bone marrow signal intensity is within normal limits. Alignment: Mild upper thoracic scoliosis. Slight anterolisthesis again demonstrated at C4-5, likely secondary to facet degenerative changes. CERVICAL CORD: Craniovertebral junction is unremarkable. The cervical cord is normal size and signal intensity. SOFT TISSUES: Unremarkable. C2-3: No disc herniation or bulge is identified. No evidence of neural foraminal narrowing. No signi ficant central canal stenosis. C3-4: No disc herniation or bulge is identified. No evidence of neural foraminal narrowing. No signif icant central canal stenosis. C4-5: No disc herniation or bulge is identified. Degenerative changes of the right-sided facet joint . Mild rightneural foraminal narrowing. No significant central canal stenosis. C5-6: No disc herniation or bulge is identified. Right-sided facet degenerative changes. Mild right neural foraminal narrowing. No significant central canal stenosis. C6-7: No disc herniation or bulge is identified. No evidence of neural foraminal narrowing. No signif icant central canal stenosis. C7-T1: No disc herniation or bulge is identified. No evidence of neural foraminal narrowing. No signi ficant central canal stenosis. IMPRESSION: Stable appearance of mild right neural foraminal narrowing at C4-5 and C5-6 secondary to facet degene rative changes. Stable minimal anterolisthesis at C4-5. DATA REPOSITORY:
== END 2024-08-08 01:36 ==
LOC: DI 01:16
PROVIDERS: PCP Nurse Practitioner Family; Visit Provider Nurse Practitioner Family
DX: M43.12 Spondylolisthesis, cervical region (principal); R42 Dizziness and giddiness
CPT/HCPCS: 72141

== ENCOUNTER 2024-10-12 17:11 | Outpatient (REF) | payer MEDICARE, SELFPAY ==
[2024-10-12 21:14] LABS: Abs Immature Grans 0.02 10^3/uL (0.0-0.06); Absolute Basophil Count 0.07 10^3/uL (0.0-0.2); Absolute Eosinophil Count 0.05 10^3/uL (0.0-0.7); Absolute Lymphocyte Count 2.95 10^3/uL (1.2-3.4); Absolute Neutrophil Count 5.71 10^3/uL (1.2-6.7); Basophils % 0.7 %; Eosinophils % 0.5 %; HCT 39.3 % (36.0-46.0); HGB 13.8 g/dL (11.2-15.7); Immature Grans % 0.2 %; Lymphocytes % 31.1 %; MCH 31.2 pg (27.0-33.0); MCHC 35.1 % (32.0-36.0); MCV 89 fL (80-95); MPV 9.2 fL (8.0-11.0); Monocytes % 7.4 %; Neutrophils % 60.1 %; Platelet Count 301 10^3/uL (130-400); RBC 4.43 10^6/uL (3.93-5.22); RDW 13.2 % (11.7-14.6); RDW-SD 43.1 fL
[2024-10-12 21:20] LABS: ESR 13 mm/hr (0-30)
[2024-10-12 21:29] LABS: C-Reactive Protein < 0.50 mg/dL (<or=0.5)
[2024-10-15 10:15] LABS: Lyme Ab w Rflx to Lyme Confirm Negative (Negative)
[2024-10-17 00:41] LABS: Anaplasma phagocytophilum Negative (Negative); B. miyamotoi PCR Negative (Negative); Babesia divergens/MO-1 Negative (Negative); Babesia duncani Negative (Negative); Babesia microti Negative (Negative); Ehrlichia chaffeensis Negative (Negative); Ehrlichia ewingii/canis Negative (Negative); Ehrlichia muris eauclairensis Negative (Negative)
== END 2024-10-12 17:12 | disposition home or self-care (01) ==
LOC: LBN 17:11
PROVIDERS: PCP Nurse Practitioner Family; Visit Provider Nurse Practitioner Family
DX: M25.561 Pain in right knee; M25.562 Pain in left knee
CPT/HCPCS: 85652; 87798; 85025; 86140; 86618

== ENCOUNTER 2024-10-17 01:37 | Outpatient (CLI) | payer MEDICARE, SELFPAY ==
--- NOTE | 2024-10-17 07:30 | DI.RAD_ITS ---
Exam(s) XR KNEE LT 3V AP,LAT,CAROLA EXAM: XR KNEE LT 3V AP,LAT,CAROLA CLINICAL HISTORY: atraumatic lt knee pain,m25.562. TECHNIQUE: 2D digital imaging was performed. Three views. COMPARISON: No exams were available for comparison FINDINGS: BONES: No acute fracture is present. No bony destructive lesion is seen. JOINTS: There is slight narrowing of the medial femoral tibial joint space and no significant periart icular spurring. Lateral femoral tibial joint and patellofemoral joint spaces are maintained. The k nee is normally aligned. No joint effusion is seen. SOFT TISSUE: Normal. IMPRESSION: Minimal degenerative changes of the medial femoral tibial joint. DATA REPOSITORY: RADIATION DOSE DELIVERED:
--- NOTE | 2024-10-17 07:30 | DI.RAD_ITS ---
Exam(s) XR KNEE RT 3V AP,LAT,CAROLA EXAM: XR KNEE RT 3V AP,LAT,CAROLA CLINICAL HISTORY: atraumatic rt knee pain, m25.561. TECHNIQUE: 2D digital imaging was performed. Three views. COMPARISON: CR XR KNEE LT 3V AP,LAT,CAROLA from 10/17/2024 FINDINGS: BONES: No acute fracture is present. No bony destructive lesion is seen. JOINTS: There is mild narrowing the medial femoral tibial joint space. No significant periarticular spurring. Remaining joint spaces are maintained. The knee is normally aligned. No joint effusion is seen. SOFT TISSUE: Normal. IMPRESSION: Mild degenerative changes of the medial femoral tibial joint. DATA REPOSITORY: RADIATION DOSE DELIVERED:
== END 2024-10-17 01:57 ==
LOC: DI 01:37
PROVIDERS: PCP Nurse Practitioner Family; Visit Provider Nurse Practitioner Family
DX: M25.561 Pain in right knee (principal); M25.562 Pain in left knee
CPT/HCPCS: 73562; 96372; J0897

== ENCOUNTER 2024-10-17 02:08 | Outpatient (RCR) | payer MEDICARE, SELFPAY ==
[2024-10-17] MEDS: Denosumab 60 MG/ML SYR SC (13:22)
== END 2024-11-06 23:59 | disposition home or self-care (01) ==
LOC: INF 02:08
PROVIDERS: PCP Nurse Practitioner Family; Visit Provider Nurse Practitioner Family
DX: M81.0 Age-related osteoporosis without current pathological fracture (principal)
CPT/HCPCS: 96372; J0897

== ENCOUNTER 2025-02-08 16:23 | Outpatient (REF) | payer MEDICARE, SELFPAY ==
[2025-02-08 21:25] LABS: Abs Immature Grans 0.02 10^3/uL (0.0-0.06); Absolute Basophil Count 0.06 10^3/uL (0.0-0.2); Absolute Eosinophil Count 0.08 10^3/uL (0.0-0.7); Absolute Monocyte Count 0.77 10^3/uL (0.1-0.8); Absolute Neutrophil Count 5.75 10^3/uL (1.2-6.7); Basophils % 0.6 %; Eosinophils % 0.8 %; HGB 14.5 g/dL (11.2-15.7); Immature Grans % 0.2 %; Lymphocytes % 31.7 %; MCHC 33.7 % (32.0-36.0); MCV 92 fL (80-95); MPV 9.5 fL (8.0-11.0); Monocytes % 7.9 %; Neutrophils % 58.8 %; Platelet Count 283 10^3/uL (130-400); RBC 4.68 10^6/uL (3.93-5.22); RDW 12.9 % (11.7-14.6); RDW-SD 43.8 fL; WBC 9.78 10^3/uL (4.4-10.8)
[2025-02-08 21:57] LABS: Bilirubin Negative (Negative); Blood Negative (Negative); Clarity Clear (Clear); Glucose Negative (Negative); Ketones Negative (Negative); Leukocyte Esterase Negative (Negative); Nitrite Negative (Negative); Specific Gravity <= 1.005 (1.005-1.025); Urobilinogen 0.2 mg/dL (Up to 0.2); pH 5.5 (5-8)
[2025-02-08 22:01] LABS: ALT 34 U/L (14-59); AST 24 U/L (15-37); Albumin 4.6 g/dL (3.4-5.0); Alkaline Phosphatase 59 U/L (46-116); Anion Gap 10.6 mmol/L (3-11); BUN 13 mg/dL (7-18); Bilirubin, Total 0.4 mg/dL (0.2-1.0); CO2 27.4 mmol/L (21.0-32.0); CREATININE 0.9 mg/dL (0.55-1.02); Chloride 103 mmol/L (98-107); Estimated GFR 70.07 (mL/min/1.73m2); Glucose 97 mg/dL (74-106); Potassium 4.7 mmol/L (3.5-5.1); Sodium 141 mmol/L (136-145); TSH (W/Ref FT4) 1.28 uIU/mL (0.36-3.74); Total Protein 7.7 g/dL (6.4-8.2)
== END 2025-02-08 16:24 | disposition home or self-care (01) ==
LOC: LBN 16:23
PROVIDERS: PCP Nurse Practitioner Family; Visit Provider Physician Assistant
DX: R60.9 Edema, unspecified (principal); R53.83 Other fatigue; R10.9 Unspecified abdominal pain
CPT/HCPCS: 80053; 81003; 84443; 85025

== ENCOUNTER → 2025-03-28 12:55 | Outpatient (BNVA) | payer MEDICARE, SELFPAY | PROVIDERS: PCP Nurse Practitioner Family; Referring Provider Nurse Practitioner Family; Visit Provider Surgery | DX: D01.3 Carcinoma in situ of anus and anal canal (principal) | CPT/HCPCS: 99213 ==

== ENCOUNTER 2025-05-01 01:05 | Outpatient (RCR) | payer MEDICARE, SELFPAY ==
[2025-05-01] MEDS: Denosumab 60 MG/ML SYR SC (13:16)
== END 2025-05-06 23:59 | disposition home or self-care (01) ==
LOC: INF 01:05
PROVIDERS: PCP Nurse Practitioner Family; Visit Provider Nurse Practitioner Family
DX: M81.0 Age-related osteoporosis without current pathological fracture (principal)
CPT/HCPCS: 96372; J0897

== ENCOUNTER 2025-05-13 02:57 | Outpatient (CLI) | payer MEDICARE, SELFPAY ==
--- NOTE | 2025-05-13 07:45 | DI.MAMMO_ITS ---
Exam(s) MAMMO SCREENING EXAM: MAMMO SCREENING CLINICAL HISTORY: screening,z12.39. TECHNIQUE: Bilateral full field digital CC and MLO mammographic images were obtained with 3D tomosynthesis and utilizing computer aided detection (CAD). COMPARISON: Prior mammograms were reviewed. FINDINGS: There has been no significant change in the appearance and distribution of the fibroglandular tissue. Small benign-appearing nodular densities in both breasts are again unchanged There are no new spiculated masses nor new malignant appearing microcalcification groups. There is no significant architectural distortion nor skin thickening-retraction. IMPRESSION: Stable benign-appearing findings. No radiographic evidence of malignancy. BI-RADS Category 2 - Benign Findings Breast Density - Category B - There are scattered areas of fibroglandular density. Breast density Category C or D implies that the patient has dense breast tissue. Dense breast tissue can make it harder to find cancer on a mammogram. Dense breast tissue is also associated with an increased risk of breast cancer. This information about the result of the mammogram report was provided to the patient to raise their awareness. Use this report when you speak with the patient about their risks for breast cancer, which includes their family history. At that time, you may recommend additional screening tests (Ultrasound or MRI) as these tests may add significant information. A negative radiographic report should not delay biopsy if a dominant or clinically suspicious mass is present. Up to ten percent of cancers are not identified on mammography. A negative report may reinforce clinical impression. Adenosis and dense breasts may obscure an underlying neoplasm. False positive reports average 6 to 10%. Patient will receive a letter notifying them of these results.
== END 2025-05-13 03:17 ==
PROVIDERS: PCP Nurse Practitioner Family; Visit Provider Nurse Practitioner Family
DX: Z12.31 Encounter for screening mammogram for malignant neoplasm of breast (principal); R92.323 Mammographic fibroglandular density, bilateral breasts
CPT/HCPCS: 77063; 77067

== ENCOUNTER 2025-06-12 15:50 | Outpatient (CLI) | payer MEDICARE, SELFPAY ==
--- NOTE | 2025-06-12 13:45 | DI.RAD_ITS ---
Exam(s) XR HAND RT LIMITED EXAM: XR HAND RT LIMITED CLINICAL HISTORY: hand pain. TECHNIQUE: 2D digital imaging was performed. COMPARISON: No exams were available for comparison FINDINGS: Two views No evidence of acute fracture nor subluxations. There appears to be some flexion at the DIP joint of the 2nd-index finger, possibly significant. The DIP joint at this level appears unremarkable and there also no obvious degenerative changes in the DIP joints nor in the PIP joints of the fingers. There is some moderate degenerative change in the 1st carpometacarpal joint. Bone density is normal. No osseous lesions nor erosions. No radiopaque foreign bodies. IMPRESSION: As above. DATA REPOSITORY: RADIATION DOSE DELIVERED:
== END 2025-06-12 15:51 | disposition home or self-care (01) ==
LOC: DIORS 15:50
PROVIDERS: PCP Nurse Practitioner Family; Referring Provider Nurse Practitioner Family; Visit Provider Student in an Organized Health Care Education/Training Program
DX: M79.641 Pain in right hand (principal); M65.332 Trigger finger, left middle finger; M18.11 Unilateral primary osteoarthritis of first carpometacarpal joint, right hand; I10 Essential (primary) hypertension
CPT/HCPCS: 99214; 73120

== ENCOUNTER 2025-06-27 06:16 | Day surgery (SDC) | payer MEDICARE, SELFPAY ==
[2025-06-27 06:25] VITALS: BP 119/64; PULSE 72; RESP 16; TEMP 36; O2SAT 98
--- NOTE | 2025-06-27 07:06 | W.PM.DSUDISC ---
Date of service: 06/27/25 Discharge Plan Disposition Patient Disposition: Home Condition: Stable Discharge Details Attending Provider: Yasmani Moreno Primary Care Provider: Ac Jeffery Home Meds and New Rx's Prescriptions: Continued albuterol sulfate 90 mcg/actuation HFA aerosol inhaler 2 inh inhalation Q6H PRN (Reason: shortness of breath or wheezing) Qty: 18 4RF cetirizine [All Day Allergy (cetirizine)] 10 mg tablet 10 mg PO DAILY PRN Adult 50 Plus Probiotic 4 billion cell capsule 4,000 mmu cells PO DAILY Rx Instructions: administer with a meal duloxetine 30 mg capsule,delayed release(DR/EC) 30 mg PO DAILY Qty: 90 0RF multivitamin [Once Daily] 1 EACH tablet 1 tab PO DAILY acetaminophen [Tylenol Extra Strength] 500 MG tablet 2 tab PO PRN cholecalciferol (vitamin D3) 1,000 UNIT capsule 1 cap PO DAILY calcium carbonate-vitamin D3 1 EACH tablet,chewable 2 - 3 tab PO DAILY Rx Instructions: TUMS B Complex Plus Vitamin C 1 EACH capsule 1 cap PO DAILY omega-3 fatty acids-fish oil 1 EACH capsule 1 cap PO DAILY glycerin (adult) Suppository 1 supp HI DAILY PRN (DME) Syringe 3cc/25Gx1 3 mL 25 gauge x 1 syringe See Rx Instructions .Route Qty: 100 0RF Rx Instructions: As directed clonazepam [Klonopin] 0.5 mg tablet 0.5 mg PO DAILY PRN (Reason: anxiety) Qty: 90 1RF montelukast 10 mg tablet 10 mg PO QHS Qty: 90 4RF duloxetine [Cymbalta] 60 mg capsule,delayed release(DR/EC) 60 mg PO DAILY Qty: 90 4RF metoprolol succinate 25 mg tablet extended release 24 hr 12.5 mg PO BID Qty: 90 4RF hydrochlorothiazide 25 mg tablet 12.5 mg PO Q OTHER DAY Qty: 90 4RF diazepam 5 mg tablet 5 mg PO QHS PRN (Reason: sleep) Qty: 10 0RF ketorolac 15 mg/mL solution 15 mg IM BID PRN (Reason: pain) Qty: 4 2RF hydrocodone-acetaminophen 7.5-325 mg tablet 1 tab PO TID MDD 3 tab PRN (Reason: pain) Qty: 90 0RF rosuvastatin 20 mg tablet 20 mg PO DAILY Qty: 90 4RF amlodipine [Norvasc] 10 mg tablet 5 mg PO DAILY Qty: 90 4RF estradiol [Estrace] 0.01 % (0.1 mg/gram) cream 2 g VG Q 48 Hours Qty: 42.5 12RF docusate sodium 100 mg capsule 100 mg PO DAILY Discharge Instructions Additional Instructions: Surgery: Left middle finger trigger release on 06/27/25 Activity: Protect hand for a few weeks. Gently increase finger motion and hand gripping to prevent stiffness. Recommend elevation to minimize swelling and discomfort. Prescriptions: None Resume home medicines, use [id number] Tylenol (acetaminophen) as needed for mild pain and ibuprofen (Motrin) or naproxen (Aleve) as needed for moderate to severe pain and swelling. Dressings: Leave dressing in place for 3 days. May then remove and leave open to air or cover incision with Band-Aid. May get wet after 5 days. Follow-up: 10-[address] Moreno Please call the office during business hours with any questions or concerns. Discharge Orders Discharge Orders: Discharge Order (Routine); Ordered 06/27/25 Ordered By: Shane Stephens DS: Diagnosis Discharge Diagnosis (1) Trigger finger, left middle finger: Status: Acute
--- NOTE | 2025-06-27 07:10 | ROE_ITS ---
Operative Note Operative Note PRE-OP DIAGNOSIS: Left middle trigger finger PROCEDURE: Left middle finger trigger release, CPT# 73165 SURGEON: Yasmani Moreno VOCAL MUSIC INSTRUCTOR: None None ANESTHESIA TYPE: Local By Surgeon Refer to Anesthesia Record ESTIMATED BLOOD LOSS: 1 TOURNIQUET TIME: 0 COMPLICATIONS: None Patient was transported to: same day Patient's condition: stable Indications: Please see complete medical record for details. Procedure Description: In the operating room, the patient was positioned supine on the stretcher. All bony prominences were padded. Preoperative antibiotics were omitted. The correct patient, procedure, and side of the procedure were all verified prior to beginning. Local anesthesia was induced about the site with 10cc of 1% lidocaine containing epinephrine buffered with 1 cc of sodium bicarbonate. The Left hand was prepped and draped in the usual sterile fashion. Proper analgesia was confirmed. A small volar longitudinal approach was made overlying the middle finger MCP joint. Soft tissues were swept to the sides and retracted to expose the A1 leander. The release was started centrally with a knife and completed at the proximal and distal margins with tenotomy scissors. Care was taken to protect the flexor tendons. The tendons were inspected and showed some bulbous degeneration, but no significant tearing. Appropriate flexor tendon excursion was confirmed. The patient readily demonstrated full range of motion of the finger without triggering. The small incision was irrigated and then dried. Hemostasis was appropriate. The incision was closed using 3-0 nylon in a horizontal mattress fashion. Xeroform was applied followed by gauze and the hand was gently compressed with an Jerald bandage. The patient tolerated local anesthesia without complication and was transferred out of the operating room in a stable condition. Date of Procedure: 06/27/25
[2025-06-27] MEDS: Sodium Bicarbonate 50 MEQ/50 ML VIAL (07:40)
[2025-06-27] MEDS: Lidocaine 1% Multi-Dose W/EPI 1/100,000 50 ML VIAL (07:40)
[2025-06-27 07:57] VITALS: BP 105/56; PULSE 58; RESP 16; TEMP 36.7; O2SAT 97
== END 2025-06-27 08:15 | disposition home or self-care (01) ==
PROVIDERS: PCP Nurse Practitioner Family; Visit Provider Student in an Organized Health Care Education/Training Program
PROC: (CPT 26055; principal; 2025-06-27 07:30)
DX: M65.332 Trigger finger, left middle finger (principal)
CPT/HCPCS: 26055; J2004

== ENCOUNTER 2025-06-28 01:09 | Outpatient (CLI) | payer MEDICARE, SELFPAY ==
--- NOTE | 2025-06-28 07:46 | DI.CTLCSR_ITS ---
Exam(s) CT CHEST LUNG CANCER SCREEN EXAM: CT CHEST LUNG CANCER SCREEN CLINICAL HISTORY: Screening for lung cancer,heavy tobacco smoker, f17.210 TECHNIQUE: Imaging Protocol: Axial computed tomography images with coronal and sagittal reformatted images were created and reviewed. Low dose screening protocol. COMPARISON: CT CT LUNG SCREEN (INSURANCE) from 03/01/2022 FINDINGS: Tracheobronchial tree: Mild bronchiectasis medial right middle lobe. Mild mucous plugging in distal 1 branch bronchus. Mediastinum and Melany: No dominant adenopathy or fluid collection. Pulmonary parenchyma: Mild atelectasis in the medial right middle lobe and inferior lingula. No consolidation or dominant measurable mass. Minimal emphysematous changes. No significant interstitial changes. Lung Nodules: None. Pleura: No effusion. No pneumothorax. Heart: The heart is not dilated. No coronary artery calcifications are seen. No pericardial effusion. Aorta: Thoracic aorta non-dilated.Minimal calcification. Upper abdomen: Unremarkable. Cholecystectomy. Bones: Unremarkable for age. Soft Tissues: Unremarkable. IMPRESSION: No suspicious pulmonary nodules. Lung RADS Cat 1 - Negative: No nodules and definitely benign nodules Lung-RADS 1.0 CATEGORIES: Category 0 - Prior chest CT exam(s) being located for comparison. Category 1 - Annual screening in 12 months. No nodules or definitely benign nodules. Category 2 - Annual screening in 12 months. Benign appearance. Nodules with low likelihood of becoming active cancer. Category 3 - 6-month follow-up. Probably benign. Short-term follow-up suggested. Nodules with low likelihood of becoming active cancer. Category 4A - 3-month follow-up and CT/PET if >8 mm in size. Suspicious finding. Findings which require additional testing. Category 4B - Findings which require additional testing and tissue sampling. Category 4X - Category 3 or 4 nodules with additional features or imaging findings that increases the suspicion of malignancy. Modifier S- Potentially clinically significant findings (non lung cancer) RADIATION DOSE DELIVERED: Total DLP DATA REPOSITORY: All CT scans at this facility are submitted to the National Radiology Data Registry (NRDR) Dose Index Registry (DIR) with the [employer] ([employer]). RADIATION OPTIMIZATION: All CT scans at this facility use at least one of these dose optimization techniques: automated exposure control; mA and/or kV adjustment per patient size (includes targeted exams where dose is matched to clinical indication); or iterative reconstruction.
== END 2025-06-28 01:29 ==
LOC: DI 01:10
PROVIDERS: PCP Nurse Practitioner Family; Visit Provider Nurse Practitioner Family
DX: Z12.2 Encounter for screening for malignant neoplasm of respiratory organs (principal); F17.210 Nicotine dependence, cigarettes, uncomplicated
CPT/HCPCS: 71271

== ENCOUNTER → 2025-07-09 13:25 | Outpatient (BNVA) | payer MEDICARE, SELFPAY | PROVIDERS: PCP Nurse Practitioner Family; Referring Provider Nurse Practitioner Family; Visit Provider Student in an Organized Health Care Education/Training Program | DX: Z47.89 Encounter for other orthopedic aftercare (principal); M65.332 Trigger finger, left middle finger | CPT/HCPCS: 99024 ==

== ENCOUNTER 2025-08-29 03:51 | Outpatient (CLI) | payer MEDICARE, SELFPAY ==
--- NOTE | 2025-08-29 08:30 | DI.DEXA_ITS ---
Exam(s) XR DEXA BONE DENSITY W/WO NAYA EXAM: XR DEXA BONE DENSITY W/WO NAYA CLINICAL HISTORY: screening for osteoporosis,POSTMENOPAUSAL STATUS,Z78.0 TECHNIQUE: [employer] C densitometer analysis of left hipand left forearm. Lateral survey image of the thoracic and lumbar spine. Lumbar spine bone density measurements were not performed due to hardware extending from L2 through L5. COMPARISON: DX NAYA from 09/01/2009 CR XR DEXA BONE DENSITY W/WO NAYA from 04/29/2023 MR MR LUMBAR SPINE WO from 05/14/2024 DEXA 2006 and 2004. FINDINGS: Lateral view of the thoracic and lumbar spine shows no evidence of compression fractures. Bone mineral density measurements of the left hip correspond to a total T-score of -1.4 on this represents a 20.4 percent increase from 2022 and a 10.4 percent increase from 2004. Osteopenia the femoral neck T-score is -2.2, in the osteopenic range.. Theleft forearm bone mineral density measurements correspond to a T-score of the distal 3rd of -1.7, consistent with osteopenia, not significantly changed from prior. The forearm was not analyzed prior to 2022. IMPRESSION: Osteopenia of the hip and forearm. Significant increase in hip density.
== END 2025-08-29 04:11 ==
LOC: DI 03:52
PROVIDERS: PCP Nurse Practitioner Family; Visit Provider Nurse Practitioner Family
DX: Z78.0 Asymptomatic menopausal state (principal); M85.89 Other specified disorders of bone density and structure, multiple sites
CPT/HCPCS: 77080

== ENCOUNTER 2025-10-05 18:37 | Emergency (ER) | payer MEDICARE, SELFPAY ==
[2025-10-05 18:38] VITALS: BP 144/69; PULSE 79; RESP 18; TEMP 36.5; O2SAT 98
[2025-10-05] MEDS: Silver Nitrate Stick 1 EACH (18:56)
--- NOTE | 2025-10-05 18:57 | W.ED.GENAD ---
Discharge Plan Disposition Patient Disposition: Home Discharge Details Clinical Impression: Avulsion of skin Primary Care Provider: Ac Jeffery ED Provider: Kaden Musa Home Meds and New Rx's Prescriptions: No Action albuterol sulfate 90 mcg/actuation HFA aerosol inhaler 2 inh inhalation Q6H PRN (Reason: shortness of breath or wheezing) Qty: 18 4RF cetirizine [All Day Allergy (cetirizine)] 10 mg tablet 10 mg PO DAILY PRN Adult 50 Plus Probiotic 4 billion cell capsule 4,000 mmu cells PO DAILY Rx Instructions: administer with a meal duloxetine 30 mg capsule,delayed release(DR/EC) 30 mg PO DAILY Qty: 90 0RF azithromycin 250 mg tablet See Rx Instructions PO .COMPLEX Qty: 6 0RF Rx Instructions: take 500 mg today (day 1), then 250 mg for 4 days (days 2-5) PO multivitamin [Once Daily] 1 EACH tablet 1 tab PO DAILY acetaminophen [Tylenol Extra Strength] 500 MG tablet 2 tab PO PRN cholecalciferol (vitamin D3) 1,000 UNIT capsule 1 cap PO DAILY calcium carbonate-vitamin D3 1 EACH tablet,chewable 2 - 3 tab PO DAILY Rx Instructions: TUMS B Complex Plus Vitamin C 1 EACH capsule 1 cap PO DAILY omega-3 fatty acids-fish oil 1 EACH capsule 1 cap PO DAILY glycerin (adult) Suppository [address] DAILY PRN (DME) Syringe 3cc/25Gx1 3 mL 25 gauge x 1 syringe See Rx Instructions .Route Qty: 100 0RF Rx Instructions: As directed montelukast 10 mg tablet 10 mg PO QHS Qty: 90 4RF duloxetine [Cymbalta] 60 mg capsule,delayed release(DR/EC) 60 mg PO DAILY Qty: 90 4RF metoprolol succinate 25 mg tablet extended release 24 hr 12.5 mg PO BID Qty: 90 4RF hydrochlorothiazide 25 mg tablet 12.5 mg PO Q OTHER DAY Qty: 90 4RF diazepam 5 mg tablet 5 mg PO QHS PRN (Reason: sleep) Qty: 10 0RF rosuvastatin 20 mg tablet 20 mg PO DAILY Qty: 90 4RF amlodipine [Norvasc] 10 mg tablet 5 mg PO DAILY Qty: 90 4RF estradiol [Estrace] 0.01 % (0.1 mg/gram) cream 2 g VG Q 48 Hours Qty: 42.5 12RF clonazepam [Klonopin] 0.5 mg tablet 0.5 mg PO DAILY PRN (Reason: anxiety) Qty: 90 1RF ketorolac 15 mg/mL solution 15 mg IM BID PRN (Reason: pain) Qty: 4 2RF hydrocodone-acetaminophen 7.5-325 mg tablet 1 tab PO TID MDD 3 tab PRN (Reason: pain) Qty: 90 0RF docusate sodium 100 mg capsule 100 mg PO DAILY Discharge Instructions Instructions: Wound Infection, Wound Care ED Additional Instructions: Please follow-up with your primary care provider regarding your visit to the emergency department today. You again have uncontrolled bleeding please seek evaluation emergency department Should your symptoms worsen, or if you develop new concerning symptoms, please return immediately emergency department for further evaluation. Stand Alone Forms: Portal Information HPI General Date/Time Provider Initiated Documentation: 10/05/25 18:38. HPI Narrative: MDM/Narrative: 70-year-old female presents for avulsion injury of the tip of the left index finger not involving the nailbed. Hemostasis achieved with silver nitrate. Nonstick bandage applied, patient discharged to follow-up primary care. Disposition: Home HPI: 70-year-old female tetanus, presents evaluation due to sustaining a dog. She accidentally snipped the tip of her left index finger with scissors, notes that she has been unable to control bleeding for 3 hours. History is ROS: Negative besides as mentioned above Exam: Gen: A&O NAD HEENT: NCAT, EOMI, not icteric. External ears normal. No rhinorrhea. Moist mucous membranes. Neck: Supple, full range of motion, no observable masses, No meningeal sign. Lungs: No Respiratory distress. CV: RRR, no edema. Abdomen: Soft, nondistended, No rebound tenderness. MSK: No joint swelling, no redness. Skin: No rashes, petechiae, lesions. Normal color per patient. There is an approximately 1 cm area of slight skin avulsion but this affected the left finger not involving the nailbed with active minimal hemorrhage. Neuro: Normal Gait, Grossly intact. Psych: Appropriate for situation. Related Data Home Medications ?Medication ?Instructions ?Recorded ?Confirmed acetaminophen 500 mg tablet 2 tab PO PRN 01/29/13 10/05/25 (Tylenol Extra Strength) calcium 500 mg (as carbonate)-D3 2 - 3 tab PO DAILY 01/29/13 10/05/25 2.5 mcg (100 unit) chewable tablet cholecalciferol (vitamin D3) 25 1 cap PO DAILY 01/29/13 10/05/25 mcg (1,000 unit) capsule multivitamin (Once Daily tablet) 1 tab PO DAILY 01/29/13 10/05/25 omega-3 fatty acids-fish oil 300 1 cap PO DAILY 01/29/13 10/05/25 mg-1,000 mg capsule vitamin B comp and C no.3 15 mg-10 1 cap PO DAILY 01/29/13 10/05/25 mg-50 mg-5 mg-300 mg capsule (B Complex Plus Vitamin C) glycerin (adult) [address] DAILY PRN 04/02/23 10/05/25 cetirizine 10 mg tablet (All Day 10 mg PO DAILY PRN 07/29/23 10/05/25 Allergy (cetirizine)) docusate sodium 100 mg capsule 100 mg PO DAILY 08/30/23 10/05/25 lactobacillus combination no.9 4 4,000 mmu cells PO DAILY 10/26/23 10/05/25 billion cell capsule (Adult 50 Plus Probiotic) syringe with needle 3 mL 25 gauge #100 ea 12/06/23 10/05/25 x 1 (Syringe) albuterol sulfate 90 mcg/actuation 2 inh inhalation Q6H PRN shortness 06/01/24 10/05/25 aerosol inhaler of breath or wheezing #18 grams montelukast 10 mg tablet 10 mg PO QHS #90 tabs 08/23/24 10/05/25 duloxetine 60 mg capsule,delayed 60 mg PO DAILY #90 caps 12/18/24 10/05/25 release (Cymbalta) metoprolol succinate 25 mg 12.5 mg (1/2 x 25 mg) PO BID #90 01/02/25 10/05/25 tablet,extended release 24 hr tabs hydrochlorothiazide 25 mg tablet 12.5 mg (1/2 x 25 mg) PO Q OTHER 02/07/25 10/05/25 DAY #90 tabs diazepam 5 mg tablet 5 mg PO QHS PRN sleep #10 tabs 02/12/25 10/05/25 rosuvastatin 20 mg tablet 20 mg PO DAILY #90 tabs 05/13/25 10/05/25 amlodipine 10 mg tablet (Norvasc) 5 mg (1/2 x 10 mg) PO DAILY #90 05/15/25 10/05/25 tabs duloxetine 30 mg capsule,delayed 30 mg PO DAILY #90 caps 06/03/25 10/05/25 release estradiol 0.01% (0.1 mg/gram) 2 g vaginal Q 48 Hours #42.5 grams 06/17/25 10/05/25 vaginal cream (Estrace) clonazepam 0.5 mg tablet (Klonopin) 0.5 mg PO DAILY PRN anxiety #90 07/04/25 10/05/25 tabs ketorolac 15 mg/mL injection 15 mg IM BID PRN pain #4 vials 08/09/25 10/05/25 solution hydrocodone 7.5 mg-acetaminophen 1 tab PO TID PRN pain #90 tabs 08/26/25 10/05/25 325 mg tablet azithromycin 250 mg tablet See Rx Instructions PO .COMPLEX #6 09/23/25 10/05/25 tabs Previous Rx's ?Medication ?Instructions ?Recorded syringe with needle 3 mL 25 gauge #100 ea 12/06/23 x 1 (Syringe) albuterol sulfate 90 mcg/actuation 2 inh inhalation Q6H PRN shortness 06/01/24 aerosol inhaler of breath or wheezing #18 grams montelukast 10 mg tablet 10 mg PO QHS #90 tabs 08/23/24 duloxetine 60 mg capsule,delayed 60 mg PO DAILY #90 caps 12/18/24 release (Cymbalta) metoprolol succinate 25 mg 12.5 mg (1/2 x 25 mg) PO BID #90 01/02/25 tablet,extended release 24 hr tabs hydrochlorothiazide 25 mg tablet 12.5 mg (1/2 x 25 mg) PO Q OTHER 02/07/25 DAY #90 tabs diazepam 5 mg tablet 5 mg PO QHS PRN sleep #10 tabs 04/08/25 rosuvastatin 20 mg tablet 20 mg PO DAILY #90 tabs 05/13/25 amlodipine 10 mg tablet (Norvasc) 5 mg (1/2 x 10 mg) PO DAILY #90 05/15/25 tabs duloxetine 30 mg capsule,delayed 30 mg PO DAILY #90 caps 06/03/25 release estradiol 0.01% (0.1 mg/gram) 2 g vaginal Q 48 Hours #42.5 grams 06/17/25 vaginal cream (Estrace) clonazepam 0.5 mg tablet (Klonopin) 0.5 mg PO DAILY PRN anxiety #90 07/04/25 tabs ketorolac 15 mg/mL injection 15 mg IM BID PRN pain #4 vials 08/09/25 solution hydrocodone 7.5 mg-acetaminophen 1 tab PO TID PRN pain #90 tabs 08/26/25 325 mg tablet azithromycin 250 mg tablet See Rx Instructions PO .COMPLEX #6 09/23/25 tabs Allergies Allergy/AdvReac Type Severity Reaction Status Date / Time silicone (Silicone) Allergy Mild LOCAL Verified 10/05/25 18:41 REACTION amoxicillin Allergy Unknown Hives Verified 10/05/25 18:41 cefaclor (Cefaclor) Allergy Unknown RASH, hives Verified 10/05/25 18:41 gabapentin AdvReac Intermediate restless Verified 10/05/25 18:41 legs NSAIDS (Non-Steroidal AdvReac Unknown GI Verified 10/05/25 18:41 Anti-Inflamma DISTRESS oxycodone (Oxycodone) AdvReac Unknown HALLUCINATI Verified 10/05/25 18:41 ONS General Stated Complaint: Laceration JENNIE: 4 Course Vital Signs Vital signs: Vital Signs Temperature 36.5 C 10/05/25 18:38 Pulse 79 10/05/25 18:38 Respiratory Rate 18 10/05/25 18:38 Blood Pressure 144/69 H 10/05/25 18:38 Pulse Oximetry 98 10/05/25 18:38 Temperature 36.5 C 10/05/25 18:38 Pulse 79 10/05/25 18:38 Respiratory Rate 18 10/05/25 18:38 Blood Pressure 144/69 H 10/05/25 18:38 Pulse Oximetry 98 10/05/25 18:38 Medical Decision Making Quality:SDOH Health Related Social Needs: Health related social needs lonely/isolated PFSH All Active Problems (Updated 10/05/25 @ 18:56 by Kaden Musa MD) Avulsion of skin (Acute) Arthritis of carpometacarpal (CMC) joint of right thumb (Acute) Trigger finger, left middle finger (Acute) s/p Left middle finger trigger release on 06/27/25 Arthralgia (Acute) Cough (Acute) Other chronic postprocedural pain (Acute) Chronic pain disorder (Chronic) Anal intraepithelial neoplasia, grade III (Acute) Environmental allergies (Acute) Left shoulder pain (Acute) Lumbar post-laminectomy syndrome (Acute) Abdominal pain (Acute) Anterolisthesis of cervical spine (Acute) Adenomatous polyps (Acute) Hemorrhoids (Acute) Rectal bleeding (Acute) Diverticulosis (Acute) 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 states she goes into [place] Atrophic vaginitis (11/20/13) Surgical History Lesion of rectum (~08/2023) Hx laparoscopic cholecystectomy History of bilateral oophorectomy History of back surgery Hx of tonsillectomy Status post spinal arthrodesis Status post laparoscopy Status post appendectomy Status post abdominal hysterectomy nerve repair left median Spinal Fusion 4-5 Abdominal hysterectomy (~1983) Diagnostic Laproscopy (~06/1996) Endometriosis Colonoscopy - [facility] [place] (06/2023) Colitis Bilateral salpingectomy with oophorectomy (~1983) Appendectomy (~06/1996) Family History Mother , 86 Alzheimer's disease Father , 82 Essential hypertension Personal history of malignant neoplasm LUNG Heart disease Hyperlipidemia Lung cancer Sister Essential hypertension Sister Hypothyroidism Brother Hyperlipidemia Alcohol use disorder Grandfather , 83 Essential hypertension Heart disease Hyperlipidemia Grandfather , 84 Essential hypertension Heart disease Hyperlipidemia Social History (Updated 06/04/25 @ 13:59 by Yana Leos) Smoking/Tobacco Use Status: Current every day Tobacco Type: cigarettes Tobacco: How many years used: 50 Quit status: not considering quitting Second Hand Exposure: Yes Smoking risk assessment performed?: Yes Alcohol Intake: never Drug use: Never Substance use type: does not use Adopted: No Caregiver/Support person: No Household members: none Housing: house Communication Needs: None Education Level: college Do you need help understanding health information?: Never Pets and animals: Yes Pets and animals: dog(s) What is your relationship status?: never How often do you talk on the phone with friends or family?: three or more times per week How often do you get together with friends or relatives?: once per week How often do you attend rastafarian or yazdanism services?: decline to answer Do you belong to any clubs or organized social groups?: no Panel score (0-1 are the most socially isolated patients): 1 What type of physical activity do you participate in: walking Duration: 30-45 minutes/day Frequency: 5-6 times per week Millie/Muslim: Zoroastrian Special millie needs: No Seatbelt use: always Drive intox or ride w/intox commercial relief driver: No Do you feel safe at home: Yes Do you feel safe in your relationship?: Yes
== END 2025-10-05 19:02 | disposition home or self-care (01) ==
PROVIDERS: Emergency Provider General Practice; PCP Nurse Practitioner Family
DX: S61.211A Laceration without foreign body of left index finger without damage to nail, initial encounter (principal); W26.8XXA Contact with other sharp object(s), not elsewhere classified, initial encounter
CPT/HCPCS: 99282

== ENCOUNTER → 2025-10-16 13:47 | Outpatient (BNVA) | payer MEDICARE, SELFPAY | PROVIDERS: PCP Nurse Practitioner Family; Referring Provider Nurse Practitioner Family; Visit Provider Surgery | DX: Z51.89 Encounter for other specified aftercare (principal); L08.89 Other specified local infections of the skin and subcutaneous tissue | CPT/HCPCS: 99213 ==

== ENCOUNTER → 2025-10-23 11:34 | Outpatient (BNVA) | payer MEDICARE, SELFPAY | PROVIDERS: PCP Nurse Practitioner Family; Referring Provider Nurse Practitioner Family; Visit Provider Surgery | DX: S60.947 Unspecified superficial injury of left little finger (principal); W27.2XXD Contact with scissors, subsequent encounter | CPT/HCPCS: 99212 ==